=== PATIENT | male | born 1950 | race Caucasian/White ===

== ENCOUNTER 2021-01-23 10:09 | Outpatient (REF) | payer MEDICARE, SELFPAY ==
[2021-01-23 14:41] LABS: Prostate Specific Antigen < 0.05 ng/mL (<0.05-4.0)
== END 2021-01-23 10:10 | disposition home or self-care (01) ==
LOC: HO.10HDL 10:09
PROVIDERS: Absent Provider Internal Medicine; Visit Provider Urology
DX: Z12.5 Encounter for screening for malignant neoplasm of prostate (principal); C61 Malignant neoplasm of prostate
CPT/HCPCS: 36415; 84153

== ENCOUNTER → 2021-02-13 10:20 | Outpatient (BNVA) | payer MEDICARE, MEDICAID, SELFPAY | PROVIDERS: PCP Internal Medicine; Referring Provider Internal Medicine; Visit Provider Urology | DX: C61 Malignant neoplasm of prostate (principal) | CPT/HCPCS: 96402; 99212; J9217 ==

== ENCOUNTER 2021-05-17 08:16 | Outpatient (REF) | payer MEDICARE, MEDICAID, SELFPAY ==
[2021-05-17 10:23] LABS: Prostate Specific Antigen < 0.05 ng/mL (<0.05-4.0)
[2021-05-21 17:16] LABS: Testosterone, Total 3 ng/dL (250-1100)
== END 2021-05-17 08:17 | disposition home or self-care (01) ==
LOC: HO.LAB 08:16
PROVIDERS: PCP Internal Medicine; Visit Provider Urology
DX: Z12.5 Encounter for screening for malignant neoplasm of prostate (principal); N40.1 Benign prostatic hyperplasia with lower urinary tract symptoms; N13.8 Other obstructive and reflux uropathy
CPT/HCPCS: 36415; 84153; 84403

== ENCOUNTER → 2021-06-04 15:57 | Outpatient (BNVA) | payer MEDICARE, MEDICAID, SELFPAY | PROVIDERS: Visit Provider Urology | DX: C61 Malignant neoplasm of prostate (principal) | CPT/HCPCS: Q3014 ==

== ENCOUNTER 2021-08-29 10:01 | Outpatient (REF) | payer MEDICARE, MEDICAID, SELFPAY ==
[2021-08-29 11:19] LABS: PSA,Total (Free>4and<10) < 0.05 ng/mL (0.00-4.00)
== END 2021-08-29 10:02 | disposition home or self-care (01) ==
LOC: HO.LAB 10:01
PROVIDERS: PCP Internal Medicine; Visit Provider Urology
DX: Z12.5 Encounter for screening for malignant neoplasm of prostate (principal); C61 Malignant neoplasm of prostate
CPT/HCPCS: 36415; 84153

== ENCOUNTER → 2021-09-05 09:55 | Outpatient (BNVA) | payer MEDICARE, MEDICAID, SELFPAY | PROVIDERS: Visit Provider Urology | DX: R35.1 Nocturia (principal); C61 Malignant neoplasm of prostate | CPT/HCPCS: 96402; 99212; J9217 ==

== ENCOUNTER 2021-12-17 10:34 | Outpatient (REF) | payer MEDICARE, MEDICAID, SELFPAY ==
[2021-12-17 12:22] LABS: Prostate Specific Antigen < 0.05 ng/mL (<0.05-4.0)
== END 2021-12-17 10:35 | disposition home or self-care (01) ==
LOC: HO.LAB 10:34
PROVIDERS: PCP Internal Medicine; Visit Provider Urology
DX: Z12.5 Encounter for screening for malignant neoplasm of prostate (principal); N13.8 Other obstructive and reflux uropathy; N40.1 Benign prostatic hyperplasia with lower urinary tract symptoms
CPT/HCPCS: 36415; 84153

== ENCOUNTER → 2021-12-31 15:13 | Outpatient (BNVA) | payer MEDICARE, MEDICAID, SELFPAY | PROVIDERS: Visit Provider Urology | DX: Z13.89 Encounter for screening for other disorder (principal) | CPT/HCPCS: Q3014 ==

== ENCOUNTER → 2022-01-13 06:58 | Outpatient (REF) | payer MEDICARE, MEDICAID, SELFPAY ==
--- NOTE | 2022-01-13 07:00 | CA_ITS ---
Transthoracic Echocardiogram Patient (Last, First, Middle): Hong Sanders, Gender: Male Date of : 1950 Age: 71 Procedure Date: 01/13/2022 Procedure Type: Transthoracic Echocardiogram Location: OP Height: 167.64 cm Weight: 81.65 kg BSA: 1.91 m2 Heart Rate: bpm BP: 122 / 80 mmHg Wheel Polisher: VH/OT Referring MD: David Orlando MD Sandblast Carver: Leon Hodge MD Symptoms: R07.9 CHEST PAIN Study Quality: Fair ECG Rhythm: Sinus Conclusions: - 1. Normal LV systolic function with impaired relaxation filling pattern 2. Normal cardiac valvular Doppler 3. Normal RV systolic pressure 4. No pericardial effusion Findings Procedure Information Contrast agent, definity, is being given per protocol without apparent complications. Left Ventricle Normal left ventricular size, thickness, and systolic function. The visually estimated ejection fraction is between 60-65%. Spectral Doppler is indicative of an impaired relaxation filling pattern. E/E prime ratio is between 8 and 15 consistent with indeterminate filling pressures. Wall Motion Rest Echo Findings The basal inferior segment is akinetic. All other scored wall segments showed normal motion. Right Ventricle Normal right ventricular cavity size and systolic function. Atria The left atrium is normal in size. There is lipomatous hypertrophy of the interatrial septum. There is no evidence of interatrial shunt. The right atrium is normal in size. Aortic Valve The aortic valve structure and function is likely normal. There is no aortic valve stenosis. There is no aortic valve regurgitation. Mitral Valve Likely normal mitral valve structure and function. There is trace mitral valve regurgitation. There is no mitral valve stenosis. Pulmonic Valve The pulmonic valve was not well visualized. Tricuspid Valve Likely normal tricuspid valve structure and function. There is trace tricuspid valve regurgitation. The right ventricular systolic pressure is normal. The right ventricular systolic pressure is 14 mmHg. There is no evidence of pulmonary hypertension. Great Vessels All visible segments of the aorta are normal in size. The pulmonary artery was not well visualized. Venous The inferior vena cava is normal in size and collapses greater than 50% with inspiration. Pericardium/Pleural There is no evidence of pericardial effusion. Prior Study Comparison No previous study in the last 5 years for comparison Measurements 2D Linear Measurements IVSd: 1.09 0.6-0.9/0.6-1.0 cm LVIDd: 4.08 3.9-5.3/4.2-5.9 cm LVIDd Index: 2.14 2.4-3.2/2.2-3.1 cm/m2 LVIDs: 2.71 2.0-3.6 cm LVPWd: 1.09 0.7-1.1 cm Ao Root: 3.40 2.1-3.5 cm LA Diam: 3.40 2.7-3.8/3.0-4.0 cm LAIDs Index: 1.78 1.5-2.3 cm/m2 LV Mass: 184.49 67-162/88-224 g LV Mass Index: 96.59 43-95/49-115 g/m2 LVOT Diam: 2.20 3.0+(-)1.3 cm Mitral Valve MV Pk E: 0.81 MV PK A: 1.06 MV Decel Time: 191.00 E/A: 0.80 E'Lateral: 8.05 E'Medial: 4.79 E/E' Med: 16.80 E/E' Lat: 10.00 PHT: 56.00 MVA PHT: 3.93 [place]: 4.21 Aortic Valve AoV Pk Mert: 1.02 AoV Mn Mert: 0.65 AoV VTI: 0.26 AoV Pk Grad: 4.00 Aov Mn Grad: 2.00 JAGDISH Cont.VTI: 2.88 LVOT LVOT Pk Mert: 0.85 LVOT Mn Mert: 0.58 LVOT VTI: 0.20 LVOT Pk Grad: 3.00 LVOT Mn Grad: 2.00 LVOT Diam: 2.20 LVOT Area: 3.80 Diastolic Function MV Pk E: 0.81 MV Pk A: 1.06 E/A: 0.80 E'Medial: 4.79 E/E' Med: 16.80 E' Laterial: 8.05 E/E' Lat: 10.00 Tricuspid Valve TR Pk Mert: 1.66 TR Pk Grad: 11.00 RA Press: 3.00 RVSP: 14.00 Great Vessels Aorta Ao Root-2D: 3.40 2.0-3.7 cm Ao Asc: 3.40 2.1-3.4 cm Pulmonary Valve PV Pk Mert: 0.90 Peak PV Grad: 3.00 Updated in Other Vendor System with Status of Final Leon Hodge MD electronically signed on 01/13/2022 12:17:44 PM with status of Final
== END ==
LOC: HO.CARD 06:58
PROVIDERS: PCP Internal Medicine; Visit Provider Internal Medicine
DX: R07.89 Other chest pain (principal)
CPT/HCPCS: 93306; Q9957

== ENCOUNTER 2022-03-05 09:51 | Outpatient (REF) | payer MEDICARE, MEDICAID, SELFPAY ==
[2022-03-05 12:03] LABS: Prostate Specific Antigen < 0.05 ng/mL (<0.05-4.0)
[2022-03-17 02:11] LABS: Testosterone, Total 3 ng/dL (250-1100)
== END 2022-03-05 09:52 | disposition home or self-care (01) ==
LOC: HO.LAB 09:51
PROVIDERS: PCP Internal Medicine; Visit Provider Urology
DX: Z12.5 Encounter for screening for malignant neoplasm of prostate (principal); C61 Malignant neoplasm of prostate; N40.1 Benign prostatic hyperplasia with lower urinary tract symptoms; N13.8 Other obstructive and reflux uropathy
CPT/HCPCS: 36415; 84153; 84403

== ENCOUNTER → 2022-03-31 14:06 | Outpatient (BNVA) | payer MEDICARE, MEDICAID, SELFPAY | PROVIDERS: PCP Internal Medicine; Visit Provider Urology | DX: C61 Malignant neoplasm of prostate (principal) | CPT/HCPCS: 96402; 99212; J9217 ==

== ENCOUNTER 2022-06-08 10:47 | Outpatient (REF) | payer MEDICARE, MEDICAID, SELFPAY ==
--- NOTE | ~2022-06-08 | XR_ITS ---
EXAMINATION: XR KNEE, RIGHT CLINICAL INFORMATION: Pain. COMPARISON: Regressed dated 08/26/2017. TECHNIQUE: AP and lateral views of the right knee. FINDINGS: Bony mineralization is normal. There is marked asymmetric narrowing of medial joint space compartment, with peripheral osteophyte formation. There is a secondary varus configuration. The lateral and patellofemoral joint are well-maintained and show peripheral osteophyte formation. There is chondrocalcinosis. No fracture or dislocation is seen. There is a moderately large joint effusion. XR/XR knee RT 2V IMPRESSION: 1. There is tricompartment osteoarthritic change, most pronounced of the medial joint space compartment. 2. There is a mild varus configuration of the right knee. 3. There is chondrocalcinosis, which can be associated with CPPD. 4. There is a moderately large right knee joint effusion.
== END 2022-06-08 10:48 | disposition home or self-care (01) ==
LOC: HO.XRAY 10:47
PROVIDERS: PCP Internal Medicine; Visit Provider Internal Medicine
DX: M51.9 Unspecified thoracic, thoracolumbar and lumbosacral intervertebral disc disorder (principal)
CPT/HCPCS: 73560

== ENCOUNTER 2022-06-12 08:16 | Outpatient (REF) | payer MEDICARE, MEDICAID, SELFPAY ==
--- NOTE | ~2022-06-12 | MM_ITS ---
EXAMINATION: BONE DENSITOMETRY CLINICAL INDICATION: Other specified disorders of bone density and structure. COMPARISON: None (current study represents initial baseline exam). TECHNIQUE: Using a VeriShow DXA System (software version: 13.1) manufactured by [id number], dual-energy x-ray absorptiometry was performed of the lumbar spine and left hip. The images are of good technical quality. Summary results are attached. FINDINGS: AP SPINE L1-L4: BMD 1.361 g/cm2, Z-score 1.5, T-score 1.2, normal. LEFT FEMUR, NECK: BMD 0.841 g/cm2, Z-score -0.6, T-score -1.8, osteopenia. LEFT FEMUR, TOTAL: BMD 0.966 g/cm2, Z-score -0.3, T-score -0.9, normal. IDENTIFIED RISK FACTORS: Secondary osteoporosis, history of fracture (adult). HISTORY OF FRACTURE: Shoulder. MEDICATIONS: None listed. MM/XR DEXA axial skeleton IMPRESSION: 1. DIAGNOSIS: Osteopenia based on the lowest T-score value of -1.8 in the femoral neck applying World Health Organization criteria. 2. 10-YEAR FRACTURE RISK PREDICTION, FRAX: Major osteoporotic fracture (clinical spine, forearm, hip or shoulder) 6.4%. Hip fracture 1.6%. 3. Treatment Recommendations: NOF guidelines recommend consideration for treatment in postmenopausal women and men age 50 and older presenting with the following: -A hip or vertebral (clinical or morphometric) fracture. -T-score less than or equal to -2.5 at the femoral neck or spine after appropriate evaluation to exclude secondary causes. -Low bone mass at the hip or spine and a 10-year fracture probability by FRAX of greater than or equal to 3% for hip fracture or greater than or equal to 20% for major osteoporotic fracture based on the [place] adapted WHO algorithm. 4. Other Recommendations: All treatment decisions require clinical judgment and consideration of individual patient factors, including patient preferences, comorbidities, previous drug use, risk factors not captured in the FRAX model (e.g. frailty, falls, vitamin D deficiency, increased bone turnover, interval significant decline in bone density) and possible under or overestimation of fracture risk by FRAX. Additional medical evaluation for secondary cause of low bone mineral density may be appropriate. FUTURE SCAN RECOMMENDATION: People with diagnosed cases of osteoporosis or at high risk for fracture should have regular bone mineral density tests. For patients eligible for Medicare, routine testing is allowed once every 2 years. The testing frequency can be increased to one year for patients who have rapidly progressing disease, those who are receiving or discontinuing medical therapy to restore bone mass, or have additional risk factors.
== END 2022-06-12 08:17 | disposition home or self-care (01) ==
LOC: HO.MAMMO 08:16
PROVIDERS: Visit Provider Urology
DX: Z13.820 Encounter for screening for osteoporosis (principal); M85.80 Other specified disorders of bone density and structure, unspecified site; C61 Malignant neoplasm of prostate; Z87.81 Personal history of (healed) traumatic fracture
CPT/HCPCS: 77080

== ENCOUNTER 2022-07-21 07:50 | Outpatient (REF) | payer MEDICARE, MEDICAID, SELFPAY ==
[2022-07-21 09:28] LABS: Prostate Specific Antigen < 0.05 ng/mL (<0.05-4.0)
[2022-07-26 12:56] LABS: Testosterone, Total 3 ng/dL (250-1100)
== END 2022-07-21 07:51 | disposition home or self-care (01) ==
LOC: HO.LAB 07:50
PROVIDERS: PCP Internal Medicine; Visit Provider Urology
DX: C61 Malignant neoplasm of prostate (principal)
CPT/HCPCS: 36415; 84153; 84403

== ENCOUNTER → 2022-08-04 10:27 | Outpatient (BNVA) | payer MEDICARE, MEDICAID, SELFPAY | PROVIDERS: Visit Provider Urology | DX: C61 Malignant neoplasm of prostate (principal); M85.80 Other specified disorders of bone density and structure, unspecified site | CPT/HCPCS: 51798; 99212 ==

== ENCOUNTER 2022-12-09 14:09 | Outpatient (REF) | payer MEDICARE, MEDICAID, SELFPAY | END 2022-12-09 14:10 | disposition home or self-care (01) | LOC: HO.HOSX 14:09 | PROVIDERS: Visit Provider Physician Assistant | DX: Z13.89 Encounter for screening for other disorder (principal) ==

== ENCOUNTER 2023-01-19 10:09 | Outpatient (REF) | payer MEDICARE, MEDICAID, SELFPAY ==
[2023-01-19 12:14] LABS: Prostate Specific Antigen < 0.10 ng/mL (<0.05-4.0)
[2023-01-27 10:38] LABS: Testosterone, Total 16 ng/dL (250-1100)
== END 2023-01-19 10:10 | disposition home or self-care (01) ==
LOC: HO.LAB 10:09
PROVIDERS: PCP Internal Medicine; Visit Provider Urology
DX: C61 Malignant neoplasm of prostate (principal); Z12.5 Encounter for screening for malignant neoplasm of prostate
CPT/HCPCS: 36415; 84153; 84403

== ENCOUNTER → 2023-02-03 10:35 | Outpatient (BNVA) | payer MEDICARE, MEDICAID, SELFPAY | PROVIDERS: PCP Internal Medicine; Visit Provider Urology | DX: C61 Malignant neoplasm of prostate (principal); M85.80 Other specified disorders of bone density and structure, unspecified site | CPT/HCPCS: Q3014 ==

== ENCOUNTER 2023-05-19 10:46 | Outpatient (REF) | payer MEDICARE, MEDICAID, SELFPAY ==
--- NOTE | ~2023-05-19 | XR_ITS ---
EXAMINATION: XR KNEE, RIGHT CLINICAL INFORMATION: Pain. COMPARISON: Radiographs dated 06/08/2022 and 08/26/2017. TECHNIQUE: Frontal, lateral and axial views of the right knee are submitted. FINDINGS: Bony mineralization is normal. There is marked asymmetric narrowing of the medial joint space compartment, with peripheral osteophyte formation. There is a secondary varus configuration. The lateral and patellofemoral joint space compartments are well-maintained, with peripheral osteophyte formation. There is chondrocalcinosis. No fracture or dislocation is seen. A posterior loose body is noted. There is a moderately large joint effusion. There is mild prepatellar soft tissue swelling. No foreign body is seen. XR/XR knee RT 3V IMPRESSION: 1. No fracture or dislocation is seen. 2. There is tricompartment osteoarthritic change of the right knee, most pronounced in the medial joint space compartment, where it is severe. 3. There is a varus configuration. 4. A moderately large joint effusion is seen. 5. A posterior loose body is noted.
== END 2023-05-19 10:47 | disposition home or self-care (01) ==
LOC: HO.XRAY 10:46
PROVIDERS: PCP Internal Medicine; Visit Provider Internal Medicine
DX: M25.561 Pain in right knee (principal)
CPT/HCPCS: 73562

== ENCOUNTER 2023-06-30 10:12 | Outpatient (REF) | payer MEDICARE, MEDICAID, SELFPAY ==
[2023-06-30 11:45] LABS: Prostate Specific Antigen 0.15 ng/mL (<0.05-4.0)
== END 2023-06-30 10:13 | disposition home or self-care (01) ==
LOC: HO.LAB 10:12
PROVIDERS: PCP Internal Medicine; Visit Provider Urology
DX: Z12.5 Encounter for screening for malignant neoplasm of prostate (principal); C61 Malignant neoplasm of prostate
CPT/HCPCS: 36415; 84153

== ENCOUNTER 2023-07-12 14:52 | Outpatient (AMB) | payer MEDICARE, MEDICAID, SELFPAY ==
--- NOTE | 2023-07-12 12:19 | A.OFFVIS_ITS ---
Intake Intake Visit Reasons: 4M PSA(psa?) Intake Note: Patient presents today for a follow-up on PSA: Patient has not taken any Urological meds in several months. Meds- Tamsulosin & Finasteride Allergies to Antibiotic- No Known Allergies Blood Thinner- Aspirin PSA Results- 0.15 ng/mL 06/30/2023 PVR- 34 ml Real Estate Assistant Required: Yes Real Estate Assistant Language: Cameroonian Information Interpreted: non-clinical & clinical Accompanied by: Self / Same As Patient Allergies aspirin [ASPIRIN] Adverse Reaction (Mild, Verified 07/12/23 15:01) GI UPSET Medication List - Last Reconciled 07/12/23 by Selene Jones MD alcohol swabs pad topical BID blood pressure test kit-large As directed blood sugar diagnostic (7fgameTouch Ultra Test strips) As directed calcium carbonate (Calcium 500) 500 mg PO BID 90 days capsaicin 0.075% (Arthritis Pain Relief (capsaicin)) appl topical TID colchicine (gout) 0.6 mg PO BID empagliflozin (Jardiance) 10 mg PO QAM finasteride 5 mg PO DAILY 90 days gabapentin mg PO gabapentin 300 mg PO BEDTIME lancets (OneTouch Delica Plus Lancet) As directed latanoprost 0.005% 1 drp ophthalmic (eye) BEDTIME metformin 1,000 mg PO BID mirtazapine 15 mg PO BEDTIME omeprazole 20 mg PO QAM tamsulosin 0.4 mg PO BEDTIME 30 days HPI HPI Comments History of Present Illness Details Hong is a 72-year-old male who presents today to the office for a 4 month follow up on PSA. 07/12/2023? He was last seen by Dr. Lopez on 02/03/2023. Pt has a history of type II diabetes. He has a history of prostate cancer. Patient has a history of being diagnosed with prostate cancer in 2017. He was seen by Dr. Villar. Initially diagnosed treated about 2016, he was started on radiation therapy and short term hormonal therapy. Medical records indicate that there was a raise in the PSA and the Patient was again treated with hormonal radiation therapy for about 18 months in 2020.? He had a bone density scan done on 06/12/2022 which noted osteopenia. He was started on calcium 500 mg BID at that time. I reviewed the PSA results from 06/30/2023 revealed 0.15. He states that he has been out of Tamsulosin 0.4 mg and Finasteride 5 mg medications. He reports intermittent urinary urgency. Evaluation today UA: leukocytes: negative; blood: negative; bladder scan PVR: 34 mL. I will discuss consideration for Prolia, based on the results of the repeat bone density. Plan: Will repeat the bone density. Continue calcium 500 mg BID daily. Continue Finasteride 5 mg daily. Continue Tamsulosin 0.4 mg daily. Patient has been out Tamsulosin and Finasteride. Once he restarts the medications, we will discuss on follow up, if his urinary symptoms has improved or not. Tele-visit follow up in 10 weeks. [facility] Medical History BPH (benign prostatic hyperplasia) Diabetes mellitus, type II Nocturia Prostate cancer Surgical History History of tonsillectomy Family History Mother Diabetes Breast cancer Sister Uterine cancer Brother Stomach cancer Father Prostate cancer Social History Household Members: Family Housing: House Alcohol intake: former Patient Tobacco Use Status: Former Tobacco user Review of Systems Const All systems reviewed & are unremarkable except as noted in HPI and below Reports no additional complaints Eyes Reports no additional complaints ENT Reports no additional complaints Card Denies dyspnea Resp Denies cough and Denies dyspnea GI Reports no additional complaints Musc Reports no additional complaints Skin/Breast Denies rash and Denies unusual bruising Neuro Reports no additional complaints Psych Reports no additional complaints Endo Reports no additional complaints Tomas/Lymph Reports no additional complaints Aller/Immun Reports no additional complaints Physical Exam Const General: healthy appearing, no acute distress and well developed Orientation/consciousness: patient oriented x3 HEENT Head: Yes normocephalic and Yes atraumatic Eyes Conjunctivae: conjunctivae normal Neck Neck: Yes normal visual inspection Chest Chest palpation & inspection: normal inspection of the chest Resp Effort & Inspection: normal respiratory effort Cardio Rate: regular rate GI Inspection: Yes normal to inspection Palpation (GI): Soft to palpation Skin General skin exam: no rashes or lesions noted Neuro General: patient oriented x3 Psych Appearance: grossly normal Affect: normal affect Office Procedures Post Void Residual Post Residual Void Post Void Residual (PVR): 34 [id number] Void Residual by ultrasound Results AMB Urinalysis, Automated UA Leukoctes 0 Ashlie/uL Last Edit by Ginger Acosta [facility] on 07/12/23 15:16 UA Nitrite Negative Last Edit by Ginger Acosta [facility] on 07/12/23 15:16 UA Urobilinogen 0.2 mg/dL Last Edit by Ginger Acosta [facility] on 07/12/23 15:1 6 UA Protein 0 mg/dL Last Edit by Ginger Acosta [facility] on 07/12/23 15:16 UA pH 6.0 Last Edit by Ginger Acosta [facility] on 07/12/23 15:16 UA Blood 0 Isaias/uL Last Edit by Ginger Acosta [facility] on 07/12/23 15:16 UA Specific [place] 1.020 Last Edit by Ginger Acosta [facility] on 07/12/23 15: 16 UA Ketone Negative Last Edit by Ginger Acosta [facility] on 07/12/23 15:16 UA Bilirubin 0 mg/dL Last Edit by Ginger Acosta [facility] on 07/12/23 15:16 UA Glucose 1000 mg/dL Last Edit by Ginger Acosta [facility] on 07/12/23 15:16 3+ Ginger Acosta 07/12/23 15:16 Results Reviewed Results Reviewed: Laboratory Last Values Urine pH (Auto) 6.0 07/12/23 15:15 Specific [place] (Auto) 1.020 07/12/23 15:15 Urine Protein (Auto) 0 mg/dL 07/12/23 15:15 Glucose (UA)(Auto) 1000 mg/dL 07/12/23 15:15 Urine Ketones (Auto) Negative 07/12/23 15:15 Urine Blood (Auto) 0 Isaias/uL 07/12/23 15:15 Urine Nitrite (Auto) Negative 07/12/23 15:15 Urine Bilirubin (Auto) 0 mg/dL 07/12/23 15:15 Urine Urobilinogen (Auto) 0.2 mg/dL 07/12/23 15:15 Leukocyte Esterase (Auto) 0 Ashlie/uL 07/12/23 15:15 Assessment & Plan Assessment & Plan (1) Osteopenia due to cancer therapy: Code(s): M85.80 - Other specified disorders of bone density and structure, unspecified site Plan: We will repeat the bone density. Continue calcium 500 mg BID daily. Continue Finasteride 5 mg daily. Continue Tamsulosin 0.4 mg daily. Patient has been out Tamsulosin and Finasteride. Once he restarts the medications, we will discuss on follow up, if his urinary symptoms has improved or not. Tele-visit follow up in 10 weeks. (2) Urinary urgency: Code(s): R39.15 - Urgency of urination (3) Prostate cancer: Comment: [place] 8. External beam radiation. Rising PSA with intermittent hormone therapy Code(s): C61 - Malignant neoplasm of prostate Orders: Orders XR DEXA axial skeleton 07/12/23 M85.80 - Other specified disorders of bone density and structure, unspecified site AMB Urinalysis Automated 07/12/23 Z13.9 - Encounter for screening, unspecified AMB Post Void Residual by ultrasound 07/12/23 N39.8 - Other specified disorders of urinary system Medications: Refilled tamsulosin 0.4 mg PO BEDTIME 30 days 90 caps 2RF R35.1 - Nocturia finasteride 5 mg PO DAILY 90 days 90 tabs 2RF C61 - Malignant neoplasm of prostate, N13.8 - Other obstructive and reflux uropathy, N40.1 - Benign prostatic hyperplasia with lower urinary tract symptoms, R33.9 - Retention of urine, unspecified Patient Instructions: The patient had an opportunity to ask questions regarding treatment plan. All questions were answered. Imaging, Laboratory studies and physical exam results were discussed and reviewed in detail. No major barriers to understanding were identified. The patient expressed understanding and agreement with the above treatment plan.? ? ? The patient is aware they should contact our office by phone for worsening of their current condition or the appearance of new symptoms. Compliance is encouraged with any medications and followup testing that is ordered.? ? ? It is a privilege to be allowed the opportunity to participate in the urologic care of your patient. If you have any questions or concerns regarding treatment for the above conditions please do not hesitate to contact me. The office telephone contact is [phone].? ? ? This note is constructed in part using voice recognition software. While every effort has been made to ensure accuracy vocational training instructor errors may have been included.? ? ? Yours sincerely,? ? ? Selene Jones MD? Coding Level of Care Code Est Pt Level 4 (38219) Diagnoses Osteopenia due to cancer therapy M85.80 Urinary urgency R39.15 Prostate cancer C61 CPT Codes Post Residual Void - PVR CPT Code: 22445-Womh Void Residual by ultrasound ([id number])
== END 2023-07-12 15:32 | disposition home or self-care (01) ==
PROVIDERS: Visit Provider Urology
DX: M85.80 Other specified disorders of bone density and structure, unspecified site (principal); R39.15 Urgency of urination; C61 Malignant neoplasm of prostate
CPT/HCPCS: 99214

== ENCOUNTER → 2023-07-12 14:52 | Outpatient (BNVA) | payer MEDICARE, MEDICAID, SELFPAY | PROVIDERS: Visit Provider Urology | DX: R39.15 Urgency of urination (principal); N40.0 Benign prostatic hyperplasia without lower urinary tract symptoms; R35.1 Nocturia; C61 Malignant neoplasm of prostate; M85.80 Other specified disorders of bone density and structure, unspecified site; E11.9 Type 2 diabetes mellitus without complications; Z92.3 Personal history of irradiation | CPT/HCPCS: 51798; 99212 ==

== ENCOUNTER 2023-08-13 09:07 | Outpatient (REF) | payer MEDICARE, MEDICAID, SELFPAY ==
[2023-08-13 15:04] LABS: MANUAL DIFF FLAG NO
[2023-08-13 15:08] LABS: Basophils Percent Auto 0.7 % (0-2); Eosinophils Absolute Auto 0.1 X10*3/uL (0.0-0.4); Eosinophils Percent Auto 2.1 % (0-4); Hematocrit 44.1 % (42.0-52.0); Hemoglobin 14.8 g/dl (14.0-18.0); Imm Gran Abs Auto 0.02 X10*3/uL (0.00-0.03); Imm Gran Pct Auto 0.5 % (0.0-0.4); Lymphocytes Percent Auto 23.6 % (20-40); Mean Corpuscular HGB Conc 33.6 g/dl (31.0-36.0); Mean Corpuscular Hemoglobin 30.1 pg (27.0-33.0); Mean Corpuscular Volume 89.6 fL (80.0-98.0); Mean Platelet Volume 9.8 fL (9.4-12.4); Monocytes Absolute Auto 0.5 X10*3/uL (0.1-1.2); Monocytes Percent Auto 10.3 % (2-11); Neutrophils Absolute Auto 2.7 x10*3/uL (2.0-8.3); Neutrophils Percent Auto 62.8 % (45-73); Platelet Count 216 X10*3/uL (160-400); Red Blood Count 4.92 X10*6/uL (4.60-5.80); Red Cell Distribution Width 13.7 % (11.0-16.0); White Blood Count 4.4 X10*3/uL (4.8-10.8)
[2023-08-13 16:07] LABS: Alanine Aminotransferase 19 U/L (0-40); Albumin Level 4.1 g/dL (3.5-5.0); Alkaline Phosphatase 95 U/L (39-117); Anion Gap 11 (12-20); Aspartate Amino Transferase 15 U/L (5-37); Bilirubin Total 0.5 mg/dL (0.0-1.0); Blood Urea Nitrogen 13 mg/dL (9-16); Calcium 9.3 mg/dL (8.4-10.2); Carbon Dioxide 28 mmol/L (22-29); Chloride 107 mmol/L (96-108); Cholesterol 319 mg/dL (<200); Estimated Glomerular Filt Rate > 60; Glucose Fasting 98 mg/dL (60-99); HDL Cholesterol 81 mg/dL (>40); LDL Cholesterol Calculated 216 mg/dL (<100); Potassium 4.1 mmol/L (3.3-5.1); Sodium 142 mmol/L (135-145); TSH reflex Free T4 17.79 uIU/mL (0.32-4.0); Total Protein 7.2 g/dL (6.5-8.0); Triglycerides 113 mg/dL (<150)
[2023-08-13 17:01] LABS: Free T4 (Free Thyroxine) 0.73 ng/dL (0.71-1.85)
== END 2023-08-13 09:08 | disposition home or self-care (01) ==
LOC: HO.CHCLDS 09:07
PROVIDERS: Visit Provider Internal Medicine
DX: E11.9 Type 2 diabetes mellitus without complications (principal)
CPT/HCPCS: 36415; 80053; 80061; 84439; 84443; 85025

== ENCOUNTER 2024-08-30 09:41 | Outpatient (REF) | payer MEDICARE, MEDICAID, SELFPAY ==
[2024-08-30 14:44] LABS: MANUAL DIFF FLAG NO
[2024-08-30 14:49] LABS: Basophils Percent Auto 0.5 % (0-2); Eosinophils Absolute Auto 0.1 X10*3/uL (0.0-0.4); Eosinophils Percent Auto 2.8 % (0-4); Hematocrit 44.4 % (42.0-52.0); Hemoglobin 14.6 g/dl (14.0-18.0); Imm Gran Abs Auto 0.01 X10*3/uL (0.00-0.03); Imm Gran Pct Auto 0.3 % (0.0-0.4); Lymphocytes Percent Auto 24.1 % (20-40); Mean Corpuscular HGB Conc 32.9 g/dl (31.0-36.0); Mean Corpuscular Hemoglobin 29.7 pg (27.0-33.0); Mean Corpuscular Volume 90.2 fL (80.0-98.0); Monocytes Absolute Auto 0.4 X10*3/uL (0.1-1.2); Monocytes Percent Auto 11.1 % (2-11); Neutrophils Absolute Auto 2.4 x10*3/uL (2.0-8.3); Neutrophils Percent Auto 61.2 % (45-73); Platelet Count 173 X10*3/uL (160-400); Red Blood Count 4.92 X10*6/uL (4.60-5.80); Red Cell Distribution Width 13.9 % (11.0-16.0)
[2024-08-30 15:20] LABS: Alanine Aminotransferase 17 U/L (0-40); Alkaline Phosphatase 110 U/L (39-117); Anion Gap 12 (12-20); Aspartate Amino Transferase 15 U/L (5-37); Bilirubin Total 0.6 mg/dL (0.0-1.0); Blood Urea Nitrogen 11 mg/dL (9-16); Carbon Dioxide 24 mmol/L (22-29); Chloride 110 mmol/L (96-108); Cholesterol 162 mg/dL (<200); Estimated Glomerular Filt Rate > 60; Glucose Random 107 mg/dL (60-115); HDL Cholesterol 73 mg/dL (>40); LDL Cholesterol Calculated 72 mg/dL (<100); Potassium 4.2 mmol/L (3.3-5.1); Sodium 142 mmol/L (135-145); Total Protein 7.1 g/dL (6.5-8.0); Triglycerides 87 mg/dL (<150)
[2024-08-30 15:27] LABS: TSH reflex Free T4 12.75 uIU/mL (0.32-4.0)
[2024-08-30 16:36] LABS: Free T4 (Free Thyroxine) 0.69 ng/dL (0.71-1.85)
[2024-08-31 08:42] LABS: ~HepC Num1 1.04 S/CO (0.00-0.79); ~Hepatitis C Antibody Reactive (Nonreactive)
[2024-09-02 15:10] LABS: HCV Log PCR <1.18 NOT DETECTED Log IU/mL (NOT DETECTED); HepC Viral Load <15 NOT DETECTED IU/mL (NOT DETECTED)
== END 2024-08-30 09:42 | disposition home or self-care (01) ==
LOC: HO.CHCLDS 09:41
PROVIDERS: Visit Provider Internal Medicine
DX: E11.9 Type 2 diabetes mellitus without complications (principal); I10 Essential (primary) hypertension
CPT/HCPCS: 36415; 80053; 80061; 84439; 84443; 85025; 86803; 87522

== ENCOUNTER 2025-01-10 10:05 | Outpatient (REF) | payer MEDICARE, SELFPAY ==
[2025-01-11 14:49] LABS: Creatinine Urine 116.37 mg/dL
[2025-01-11 14:57] LABS: TSH reflex Free T4 8.23 uIU/mL (0.32-4.0)
== END 2025-01-10 10:06 | disposition home or self-care (01) ==
LOC: HO.CHCLDS 10:05
PROVIDERS: Visit Provider Internal Medicine
DX: R79.89 Other specified abnormal findings of blood chemistry (principal); E11.9 Type 2 diabetes mellitus without complications; E66.811 Obesity, class 1; E66.09 Other obesity due to excess calories; Z68.30 Body mass index [BMI] 30.0-30.9, adult
CPT/HCPCS: 36415; 82043; 82570; 84439; 84443

== ENCOUNTER 2025-04-04 11:10 | Emergency (ER) | payer MEDICARE, SELFPAY ==
--- NOTE | ~2025-04-04 | CT_ITS ---
EXAMINATION: CT HEAD WITHOUT IV CONTRAST HISTORY: fall 2 mos ago, headache, dizziness. TECHNIQUE: Unenhanced helical CT of the head was performed per standard departmental protocol. Coronal and sagittal reformats of the head were also evaluated. One or more of the following techniques was used for dose reduction: Automated exposure control, adjustment of the mA and/or kV according to patient size, use of iterative reconstruction technique. DLP: 710 mGy-cm COMPARISON: There are no prior studies for comparison. FINDINGS: BRAIN: There is diffuse prominence of the ventricular system and cortical sulci, consistent with atrophy. Periventricular and subcortical white matter hypodensities are noted which are nonspecific, but often seen in the setting of small vessel ischemic disease. There is no mass effect or midline shift. No intra- or extra-axial fluid collections are identified. SINUSES: The visualized paranasal sinuses are clear. The mastoid air cells and middle ear cavities are well pneumatized. ORBITS: The visualized orbits are unremarkable. BONES/SOFT TISSUES: The extracranial soft tissues are unremarkable. The calvarium is intact. No suspicious lytic or sclerotic lesions. CT/CT head/brain wo IV con IMPRESSION: No evidence of intracranial hemorrhage. Electronically signed by: Brendon Skinner MD 04/04/2025 02:25 PM EDT
[2025-04-04 11:49] VITALS: BP 116/64; PULSE 97; RESP 18; TEMP 36.6; O2SAT 97; BMI 25.1
--- NOTE | 2025-04-04 11:49 | ED_ITS ---
HPI - Headache General Chief Complaint: General Medical Stated Complaint: headache Time Seen by Provider: 04/04/25 13:29 Source: patient, family (Spouse and son) and renal social worker Mode of arrival: ambulatory Limitations: no limitations History of Present Illness ED Provider: DR. Crowley HPI Narrative: 74-year-old male came in for evaluation of headache and dizziness for about a month on and off. Patient sustained a mechanical fall 2 months ago causing hitting the left side of his head and closed head injury, then patient's symptoms started as an intermittent symptoms a month ago, patient describing dizziness as room spinning triggered by changing position especially from supine to standing. Each episode lasts for about 2-3 minute then resolve on its own. No Speech issue, no weakness, no numbness. Related Data Home Medications ?Medication ?Instructions ?Recorded ?Confirmed alcohol swabs pad topical BID 02/13/21 07/12/23 blood pressure test kit-large #1 ea 02/13/21 07/12/23 gabapentin 100 mg capsule mg PO 02/13/21 07/12/23 latanoprost 0.005 % eye drops 1 drp ophthalmic (eye) BEDTIME 02/13/21 07/12/23 metformin 1,000 mg tablet 1,000 mg PO BID 02/13/21 07/12/23 mirtazapine 15 mg tablet 15 mg PO BEDTIME 02/13/21 07/12/23 omeprazole 20 mg capsule,delayed 20 mg PO QAM 02/13/21 07/12/23 release gabapentin 300 mg capsule 300 mg PO BEDTIME 12/31/21 07/12/23 blood sugar diagnostic (IntivixTouch #10 ea 08/04/22 07/12/23 Ultra Test strips) capsaicin 0.075 % topical cream appl topical TID 08/04/22 07/12/23 (Arthritis Pain Relief (capsaicin)) colchicine 0.6 mg tablet 0.6 mg PO BID 08/04/22 07/12/23 lancets 30 gauge (OneTouch Ankita #100 ea 08/04/22 07/12/23 Plus Lancet) empagliflozin 10 mg tablet 10 mg PO QAM 02/03/23 07/12/23 (Jardiance) Previous Rx's ?Medication ?Instructions ?Recorded calcium carbonate (Calcium 500) 500 mg PO BID Prostate cancer 90 03/16/23 days #180 tabs finasteride 5 mg tablet 5 mg PO DAILY #90 tabs 01/11/24 tamsulosin 0.4 mg capsule 0.4 mg PO BEDTIME #90 caps 01/11/24 meclizine 25 mg tablet 25 mg PO TID PRN dizziness #20 tabs 04/04/25 Allergies Allergy/AdvReac Type Severity Reaction Status Date / Time aspirin [ASPIRIN] AdvReac Mild GI UPSET Verified 04/04/25 11:55 Review of Systems 2 Review of Systems: All other systems are reviewed and are negative Constitutional: Reports as per HPI and Reports no additional constitutional complaints Eyes: Reports as per HPI and Reports no additional eye complaints Reports system reviewed and no additional complaints, except as documented Cardiovascular: Reports as per HPI and Reports no additional cardiovascular complaints Respiratory: Reports as per HPI and Reports no additional respiratory complaints Gastrointestinal: Reports as per HPI and Reports no additional gastrointestinal complaints Genitourinary: Reports no additional female genitourinary complaints Musculoskeletal: Reports no additional musculoskeletal complaints Skin/Breast: Reports system reviewed and no additional complaints, except as docu Psychiatric: Reports no additional psychiatric complaints Endocrine: Reports no additional endocrine complaints Hematologic/Lymphatic: Reports no additional hematologic/lymphatic complaints Allergic/Immunologic: Reports no additional allergic/immunologic complaints Reports system reviewed and no additional complaints, except as documented and Reports Abnormal speech present [facility] Past Medical History Medical History Nocturia BPH (benign prostatic hyperplasia) Diabetes mellitus, type II Prostate cancer Surgical History History of tonsillectomy Family History Family History Mother Diabetes Breast cancer Sister Uterine cancer Brother Stomach cancer Father Prostate cancer Social History Social History Household Members: Family Housing: House Alcohol intake: former Patient Tobacco Use Status: Former Tobacco user Advance Directives: No Advance Directives Information Provided: Yes Physical Exam 2 Vital Signs: Vital Signs: Last Vital Signs Temp 98 F 04/04/25 16:54 Pulse 84 04/04/25 16:54 Resp 16 04/04/25 16:54 BP 118/70 04/04/25 16:54 Pulse Ox 98 04/04/25 16:54 O2 Del Method Room Air 04/04/25 16:54 BMI result Body Mass Index 25.1 Vital signs have been reviewed and appear to be correct. Blood pressure elevated. Heart rate normal. Respiratory rate normal. Temperature normal. Oxygen saturation normal. Appearance: Alert. Oriented X3. No acute distress. Head: Normal external exam. Normocephalic. Atraumatic. No Wesley signs noted. No raccoon eyes noted Eyes: PERRLA. EOMI. Conjunctiva and sclera normal. Eyelids normal. ENT: TM's Normal. Pharynx normal. Uvula midline. Moist mucous membranes. No trismus noted. No drooling noted. No muffled voice noted. Neck: Normal inspection. Neck supple. FROM. No adenopathy. Thyroid Normal. No meningeal signs. No neck mass noted. CVS: Normal heart rate and rhythm. Heart sound normal. No murmurs noted. Pulses normal throughout. Respiratory: No respiratory distress. Painless inspiration. Breath sounds normal. No wheezes/rales/rhonchi noted. Chest nontender. No accessory muscle usage noted or decreased air movement noted. Abdomen: Soft and nontender. Bowel sounds normal in all 4 quadrants. No distention noted. No organomegaly noted. No visible injury noted. Back: No CVA tenderness. Full range of motion noted. Skin: Skin warm and dry. Normal skin color. Normal skin turgor. No rashes/lesions/lacerations noted. Extremities: No lower extremity edema. Extremities exhibit normal range of motion. Extremities nontender. Neuro: Mental status: Normal attention, orientation, memory, and affect. Cranial nerves: Pupils are equal, round and reactive to light, EOMI, visual barrera are fall, face is symmetric, facial sensations are normal. Motor examination normal muscle tone, strength to 4 extremities. DTR are +2, planter's are flexor. Sensory exam; normal coordination, no ataxia, gait stable. Cerebellar exam: Osyquj-vp-[id number] and dcrh-dx-uxru is normal. Extrapyramidal system: No tremors, no rigidity with normal facial expressions. Pronator drift not present NIH Stroke Scale Time: 13:42 Level of Consciousness: Alert Level of Consciousness Questions: Answers both questions correctly Level of Consciousness Commands: Performs both tasks correctly Best Gaze: Normal Visual: No visual loss Facial Palsy: Normal Motor Arm (Right): No drift Motor Arm (Left): No drift Motor Leg (Right): No drift Motor Leg (Left): No drift Limb Ataxia: Absent Sensory: Normal Best Language: No aphasia Dysarthia: Normal Extinction and Inattention: No abnormality Score: 0 Course Course Course Narrative: This is a Rapid Medical Exam performed in triage by Slime Peck PA-C. Full HPI, ROS and PE to be performed by primary ED provider. 74 yo male with PMHx of osteoporosis, s/p prostate cancer, presenting to the ED c/o headache and dizziness. He states he fell about 2 months ago with headstrike, denies LOC or use of thinners. He reports headache and dizziness for 1 month. He states dizziness feels like the room is spinning and lasts for 2-3 minutes at a time. Denies visual changes, nausea, vomiting, cough, fever, SOB, chest pain, diarrhea. PE: No focal neuro deficits, no appreciable head trauma Plan: Head CT, labs, EKG, orthostatics Reevaluation(s) Reevaluation #1: 74-year-old male came in with 1 month on and off of vertigo after he sustained a mechanical fall with head injury a month before, neuro exam is unremarkable, head CT is unremarkable, GCS of 15, patient reported improvement with meclizine. Time: 15:00 Medical Decision Making Differential Diagnosis Differential Diagnoses: The differential diagnosis associated with the presentation includes (Peripheral vertigo, central vertigo, neurological deficit, hemorrhagic stroke, ischemic stroke, electrolyte derangement, severe anemia, orthostatic hypotension.) Admission/Observation Consideration of admission/observation: Escalation of care including admission/observation considered Lab Data MDM Lab Attestation statement: I reviewed the patient's lab results. 04/04/25 12:08 04/04/25 12:08 Labs: Lab Results 04/04/25 Range/Units 12:08 WBC 5.5 (4.8-10.8) X10*3/uL RBC 4.46 L (4.60-5.80) X10*6/uL Hgb 13.6 L (14.0-18.0) g/dl Hct 38.7 L (42.0-52.0) % MCV 86.8 (80.0-98.0) fL MCH 30.5 (27.0-33.0) pg MCHC 35.1 (31.0-36.0) g/dl RDW 13.1 (11.0-16.0) % Plt Count 182 (160-400) X10*3/uL MPV 9.4 (9.4-12.4) fL Immature Gran % (Auto) 0.4 (0.0-0.4) % Neut % (Auto) 70.1 (45-73) % Lymph % (Auto) 17.4 L (20-40) % [place] % (Auto) 8.7 (2-11) % Eos % (Auto) 2.5 (0-4) % Baso % (Auto) 0.9 (0-2) % Lymph # (Auto) 1.0 L (1.2-4.9) X10*3/uL [place] # (Auto) 0.5 (0.1-1.2) X10*3/uL Eos # (Auto) 0.1 (0.0-0.4) X10*3/uL Baso # (Auto) 0.1 (0.0-0.2) X10*3/uL Abs Immat Gran (auto) 0.02 (0.00-0.03) X10*3/uL Absolute Neuts (auto) 3.9 (2.0-8.3) x10*3/uL Absolute Nucleated RBC 0.000 (0.0-0.012) X10*3/uL Nucleated RBC % (auto) 0.0 (0.0-0.2) /100WBC Sodium 140 (135-145) mmol/L Potassium 4.3 (3.3-5.1) mmol/L Chloride 107 (96-108) mmol/L Carbon Dioxide 25 (22-29) mmol/L Anion Gap 12 (12-20) BUN 11 (9-16) mg/dL Creatinine 0.89 (0.5-1.4) mg/dL Estim Creat Clear Calc 64.7 Estimated GFR > 60 Random Glucose 252 H (60-115) mg/dL Calcium 9.2 (8.4-10.2) mg/dL Magnesium 1.9 (1.6-2.6) mg/dL Total Bilirubin 0.5 (0.0-1.0) mg/dL Direct Bilirubin 0.2 (0.0-0.5) mg/dL AST 44 H (5-37) U/L ALT 24 (0-40) U/L Alkaline Phosphatase 109 (39-117) U/L Troponin I High Sens < 2.7 (<3.5-35.0) ng/L Total Protein 6.8 (6.5-8.0) g/dL Albumin 4.0 (3.5-5.0) g/dL Influenza Type A (PCR) NEGATIVE (Negative) Influenza Type B (PCR) NEGATIVE (Negative) RSV RNA Qual (PCR) NEGATIVE (Negative) SARS-CoV-2 RNA (RT-PCR) NEGATIVE (Negative) Independent Interpretation I performed an independent interpretation of an: CT Scan (Head: No acute intracranial pathology.) Radiology Impression Discussion of test interpretation with radiology: I have reviewed the radiologist's reading. Discharge Plan Discharge Clinical Impression: Vertigo due to brain injury Patient Disposition: Home, Self-Care Instructions: Vertigo (ED) Prescriptions: New meclizine 25 mg tablet 25 mg PO TID PRN (Reason: dizziness) Qty: 20 0RF No Action calcium carbonate [Calcium 500] 500 mg calcium (1,250 mg) tablet,chewable 500 mg PO BID 90 Days Qty: 180 2RF tamsulosin 0.4 mg capsule 0.4 mg PO BEDTIME Qty: 90 2RF finasteride 5 mg tablet 5 mg PO DAILY Qty: 90 2RF (DME) blood pressure test kit-large Kit See Rx Instructions .ROUTE DIRECTED Qty: 1 Rx Instructions: As directed mirtazapine 15 mg tablet 15 mg PO BEDTIME metformin 1,000 mg tablet 1,000 mg PO BID omeprazole 20 mg capsule,delayed release(DR/EC) 20 mg PO QAM latanoprost 0.005 % drops 1 drp ophthalmic (eye) BEDTIME gabapentin 100 mg capsule PO alcohol swabs Pads, Medicated topical BID Jardiance 10 mg tablet 10 mg PO QAM gabapentin 300 mg capsule 300 mg PO BEDTIME colchicine 0.6 mg tablet 0.6 mg PO BID (DME) lancets [OneTouch Delica Plus Lancet] 30 gauge misc See Rx Instructions .ROUTE .MEDSUPPLY Qty: 100 Rx Instructions: As directed (DME) OneTouch Ultra Test Strip See Rx Instructions .ROUTE BID Qty: 10 Rx Instructions: As directed capsaicin [Arthritis Pain Relief(capsaic)] 0.075 % cream topical TID Referrals: David Orlando MD [Primary Care Provider] - Print Language: Indonesian
--- NOTE | 2025-04-04 11:55 | ECG_ITS ---
Test Reason : dizziness Blood Pressure : */* mmHG Vent. Rate : 89 BPM Atrial Rate : 89 BPM P-R Int : 214 ms QRS Dur : 84 ms QT Int : 370 ms P-R-T Axes : 53 -8 42 degrees QTcB Int : 450 ms Sinus rhythm with 1st degree A-V block Otherwise normal ECG No previous ECGs available Referred By: Slime Peck Electronically Signed By: DENISE TORRES
[2025-04-04 12:13] LABS: MANUAL DIFF FLAG NO
[2025-04-04 12:15] LABS: Basophils Absolute Auto 0.1 X10*3/uL (0.0-0.2); Basophils Percent Auto 0.9 % (0-2); Eosinophils Absolute Auto 0.1 X10*3/uL (0.0-0.4); Eosinophils Percent Auto 2.5 % (0-4); Hematocrit 38.7 % (42.0-52.0); Hemoglobin 13.6 g/dl (14.0-18.0); Imm Gran Abs Auto 0.02 X10*3/uL (0.00-0.03); Imm Gran Pct Auto 0.4 % (0.0-0.4); Lymphocytes Percent Auto 17.4 % (20-40); Mean Corpuscular HGB Conc 35.1 g/dl (31.0-36.0); Mean Corpuscular Hemoglobin 30.5 pg (27.0-33.0); Mean Corpuscular Volume 86.8 fL (80.0-98.0); Mean Platelet Volume 9.4 fL (9.4-12.4); Monocytes Absolute Auto 0.5 X10*3/uL (0.1-1.2); Monocytes Percent Auto 8.7 % (2-11); Neutrophils Absolute Auto 3.9 x10*3/uL (2.0-8.3); Neutrophils Percent Auto 70.1 % (45-73); Platelet Count 182 X10*3/uL (160-400); Red Blood Count 4.46 X10*6/uL (4.60-5.80); Red Cell Distribution Width 13.1 % (11.0-16.0); White Blood Count 5.5 X10*3/uL (4.8-10.8)
[2025-04-04 12:37] LABS: Alanine Aminotransferase 24 U/L (0-40); Alkaline Phosphatase 109 U/L (39-117); Anion Gap 12 (12-20); Aspartate Amino Transferase 44 U/L (5-37); Bilirubin Direct 0.2 mg/dL (0.0-0.5); Bilirubin Total 0.5 mg/dL (0.0-1.0); Blood Urea Nitrogen 11 mg/dL (9-16); Calcium 9.2 mg/dL (8.4-10.2); Carbon Dioxide 25 mmol/L (22-29); Chloride 107 mmol/L (96-108); Creatinine Clr Calc Pharmacy 64.7; Estimated Glomerular Filt Rate > 60; Glucose Random 252 mg/dL (60-115); Magnesium 1.9 mg/dL (1.6-2.6); Potassium 4.3 mmol/L (3.3-5.1); Sodium 140 mmol/L (135-145); Total Protein 6.8 g/dL (6.5-8.0)
[2025-04-04 12:46] LABS: Troponin-I High Sensitivity < 2.7 ng/L (<3.5-35.0)
[2025-04-04 12:52] LABS: Influenza A PCR NEGATIVE (Negative); Influenza B PCR NEGATIVE (Negative); Resp Syncy Virus RNA Qual PCR NEGATIVE (Negative); SARS COV2 PCR INHOUSE NEGATIVE (Negative)
[2025-04-04 13:19] VITALS: BP 107/67; PULSE 80; PULSE 81; RESP 20; TEMP 36.5; O2SAT 97
[2025-04-04 13:22] VITALS: BP 109/68; PULSE 86
[2025-04-04 13:23] VITALS: BP 113/69; PULSE 85
--- OUTSIDE RECORDS SUMMARY | 2025-04-04 15:39 | XMS_ITS | Encounter Summary ---
Author Organization [employer] [facility] Address [address] [place] [address] Care Team Providers Care Metallurgical Laboratory Assistant Name Role Phone David Orlando MD Primary Care Provider [phone] Encounter Details Date Type Department Care Team (Latest Contact Info) Description 10/05/2019 Abstract [facility] CONVERSIONS Dental, Provider, DDS Social History Tobacco Use Types Packs/Day Years Used Date Smoking Tobacco: Never Assessed Sex and Gender Information Value Date Recorded Sex Assigned at Male 09/28/2022 10:22 AM EDT Legal Sex Male 10:22 AM EDT Gender Identity Male 09/28/2022 10:22 AM EDT Sexual Orientation Straight 09/28/2022 10 :22 AM EDT documented as of this encounter Plan of Treatment Upcoming Encounters Date Type Department Care Team (Late st Contact Info) Description 04/09/2025 1:45 PM EDT Office Visit [facility] [address] [place] [address] David Orlando MD [address] [place] [address] documented as of this encounter Visit Diagnoses Not on filedocumented in this encounter Care Teams Metallurgical Laboratory Assistant Relationship Specialty Start Date End Date David Orlando MD [address] [place] [address] PCP - General Internal Medicine 04/05/12 documented as of this encounter
--- OUTSIDE RECORDS SUMMARY | 2025-04-04 15:39 | XMS_ITS | Clinical Summary ---
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 Active capsicum (Zostrix) 0.075 % topical cream Apply topically every 8 (eight) hours. 06/04/20 22 Active colchicine 0.6 MG tablet take 1 tablet by oral route 2 times a day 06/10/20 22 Active docusate sodium (Colace) 100 MG capsule Take 1 capsule by mouth at bed time. 11/19/20 20 Active fluticasone (Flonase) 50 MCG/ACT nasal spray Administer 1-2 sprays into affected nostril(s) at bed time. 11/23/20 18 Active gabapentin (Neurontin) 300 MG capsule take 1 capsule by oral route every day at bedtime 11/13/20 21 Active lisinopril 5 MG tablet take 1 Tablet by Oral route once a day 12/26/19 21 Active clindamycin (Cleocin) 150 MG capsule Take one tablet (150 mg) 4 times per day for 7 days 28 capsule 02/27/20 23 Active mupirocin (Bactroban) 2 % ointment Apply topically every 8 (eight) hours. 07/08/20 18 Active nystatin (Mycostatin) cream Apply topically every 12 (twelve) hours. 04/01/20 21 Active omeprazole (PriLOSEC) [address] capsule Take 1 capsule by mouth at bed time. 02/04/20 21 Active Sodium Fluoride (PreviDent) 1.1 % gel brush at bed time for 2 minutes, expectorate, do not rinse 03/27/20 16 Active triamcinolone (Kenalog) 0.1 % cream Apply topically at bed time. 04/08/20 21 Active Lancets (OneTouch Delica Plus [id number]) misc 05/14/20 23 Active fluticasone (Flonase) 50 MCG/ACT nasal spray Administer 1-2 sprays into each nostril in the morning. Shake gently. Before first use, prime pump. After use, clean tip and replace cap. 16 g 3 05/19/20 23 Active calcium carbonate (Os-Abilio) 1250 (500 Ca) MG chewable tablet CHEW AND SWALLOW ONE TABLET BY MOUTH two (2) times a day 03/25/20 23 Active ketoconazole (NIZOral) 2 % cream APPLY TO ANGLE OF LIPS two (2) times a day NEEDED 12/15/19 23 Active Lancets (OneTouch Delica Plus [id number]) [facility] USE TO TEST FINGER STICK BLOOD SUGAR two (2) times a day 100 each 5 06/22/20 24 Active OneTouch Ultra Test test strip USE TO TEST FINGER STICK BLOOD SUGAR two (2) times a day 100 strip 06/22/20 24 Active atorvastatin (Lipitor) 40 MG tabletIndications :Hypercholesterol emia TAKE 1 TABLET BY MOUTH EVERY MORNING 30 tablet 08/16/20 24 Active Continuous Glucose Director Of Instruction (FreeStyle Silvino 2 [place]) deviceIndications :Type 2 diabetes mellitus without complication, without long-term current use of insulin ([facility]) Scan sensor every 8 hours 1 each 08/28/20 24 Active Continuous Glucose Sensor (FreeStyle Silvino 2 Sensor) miscIndications:T ype 2 diabetes mellitus without complication, without long-term current use of insulin (CMS/HCC) Apply 1 sensor every 14 days 2 each 08/28/20 24 Active gabapentin (Neurontin) 100 MG capsuleIndication s:Other diabetic neurological complication associated with type 2 diabetes mellitus (CMS/HCC) Take 2 capsules (200 mg) by mouth 2 times daily. 120 capsule 08/28/20 24 2024 Active latanoprost (Xalatan) 0.005 % ophthalmic solutionIndicatio ns:Other specified glaucoma, unspecified laterality INSTILL 1 DROP IN EACH EYE ONCE DAILY AT BEDTIME 2.5 mL 12/29/19 25 Active metFORMIN (Glucophage) 850 MG tabletIndications :Type 2 diabetes mellitus without complication, without long-term current use of insulin ([facility]) Take 1 tablet (850 mg) by mouth with breakfast and with evening meal. 60 tablet 01/10/20 25 2025 Active Diclofenac Sodium 1 % gelIndications:Ch ronic pain of right knee To use 4 times a day to the affected area 100 g 01/10/20 25 Active acetaminophen (Tylenol 8 Hour) 650 MG ER tabletIndications :Chronic pain of right knee Take 1 tablet (650 mg) by mouth every 8 (eight) hours if needed for mild pain. 90 tablet 01/10/20 25 Active levothyroxine (Synthroid) 50 MCG tabletIndications :Other specified hypothyroidism Take 1 tablet (50 mcg) by mouth before breakfast. 30 tablet 01/11/20 25 2025 Active Jardiance 10 MGIndications:Typ e 2 diabetes mellitus without complication, without long-term current use of insulin ([facility]) TAKE 1 TABLET BY MOUTH ONCE DAILY IN THE MORNING 30 tablet 01/22/20 25 Active metFORMIN (Glucophage) 1000 MG tabletIndications :Type 2 diabetes mellitus without complication, without long-term current use of insulin ([facility]) TAKE 1 TABLET BY MOUTH two (2) times a day WITH BREAKFAST AND DINNER 60 tablet 01/22/20 25 Active mirtazapine (Remeron) 15 MG tablet TAKE 1 TABLET BY MOUTH EVERY NIGHT AT BEDTIME 30 tablet 03/30/20 25 Active mirtazapine (Remeron) 15 MG tablet Take 1 tablet by mouth at bed time. 07/02/20 22 2024 Discontinued mirtazapine (Remeron) 15 MG tablet TAKE 1 TABLET BY MOUTH EVERY NIGHT AT BEDTIME 30 tablet 08/18/20 24 2024 Discontinued Active Problems Problem Noted Date Diagnosed Date Type 2 diabetes mellitus wit hout complication, without long-term current use of insulin 11/09/2022 Assessment & Plan (11/09/2022 11:50 AM EST): He is on metformin 1000mg BID, a1c today is 7.6%, will start on empagliflozin 10mg, follow up with pcp Chronic pain of right knee 11/09/2022 Assessment & Plan (11/09/2022 11:46 AM EST): Chronic, denied recent trauma, he refers completed PT without improvement in symptoms, told to raise extremity, apply ice, take tylenol/NSAID, will refer to ortho, he had xray done in 05/2022 Skin lesion 11/09/2022 Assessment & Plan (11/09/2022 11:51 AM EST): Patient with right ear lesion AK vs SCC, will refer to dermatology for evaluation Hypercholesterolemia 11/09/2022 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 Hypertension 01/05/2017 Paresthesia 01/05/2017 Diabetes mellitus type 2, uncomplicated 06/10/20 12 Generalized osteoarthritis 06/10/2010 Herniation of intervertebral disc 06/10/1998 Encounters Date Type Department Care Team Description 04/04/2025 Orders Only GENERIC EXTERNAL DATA DEPARTMENT Provider, Generic External Data 04/02/2025 Patient Outreach [facility] [address] [place] [address] David Orlando MD Pre-visit Planning (Pre visit planning LVM ) 03/30/2025 Refill [facility] [address] [place] [address] David Orlando MD 03/09/2025 10:00 AM EDT Office Visit [facility] [address] [place] [address] Rolan, Fozia, OD Diabetes type 2, no ocular involvement (CMS/HCC) (Primary Dx); Glaucoma of both eyes, unspecified glaucoma type; Nuclear sclerotic cataract of both eyes; H/O laser iridotomy; Asteroid hyalosis of left eye; Reduced vision; Presbyopia 03/09/2025 Travel 02/28/2025 10:00 AM EDT Office Visit [facility] [address] [place] [address] Bartolo Jones 02/02/2025 10:00 AM EST Office Visit [facility] [address] [place] [address] Brianne Willson 01/22/2025 Refill [facility] [address], [place] [phone] Lesia Carias MD Type 2 diabetes mellitus without complication, without long-term current use of insulin (CMS/HCC) 01/11/2025 Telephone [facility] [address] [place] [address] David Orlando MD Results 01/11/2025 Orders Only [facility] [address] [place] [address] David Orlando MD Other specified hypothyroidism 01/10/2025 9:45 AM EST Office Visit [facility] [address] [place] [address] David Orlando MD Type 2 diabetes mellitus without complication, without long-term current use of insulin (CMS/HCC) (Primary Dx); Dietary counseling; Exercise counseling; Class 1 obesity due to excess calories with serious comorbidity and body mass index (BMI) of 30.0 to 30.9 in adult; Primary hypertension; Elevated TSH; Chronic pain of right knee 01/10/2025 Orders Only [facility] [address] [place] [address] David Orlando MD 01/10/2025 Travel 01/09/2025 Telephone [facility] [address] [place] [address] David Orlando MD Chart Prep from Last 3 Months Immunizations Name Administration Dates Next Due Influenza injectable quadriv alent IIV4 with preservative 10/13/2018,11/04/2017 Influenza injectable quadrivalent preservative f ree 01/05/2017 Influenza, High Dose Seasonal, Preservative Free 08/28/2024 Influenza, IIV3, injectable 09/03/2014, 2 Influenza, Split (incl. purified surface antigen ) 08/24/2013 Pneumococcal Conjugate PCV 13 01/08/2017 Pneumococcal Conjugate PCV 20 08/28/2024 Tdap 05/17/2017 Zoster, live 05/17/2017 Family History Medical History Relation Name Comments Colon cancer Brother Throat cancer Brother Colon cancer Father Diabetes type II Father Breast cancer Mother Diabetes type II Mother Cervical cancer Sister Relation Name Status Comments Brother Father Mother Sister Social History Tobacco Use Types Packs/Day Years Used Date Smoking Tobacco: Former Cigarettes 0.5 20 1 7 2016 Passive Smoke Exposure: Never Smokeless Tobacco: Never Alcohol Use Standard Drinks/Week Comments Never 0 (1 standard drink = 0.6 oz pur e alcohol) PHQ-2 Answer Date Recorded Patient Health Questionnaire-2 Score 0 01/13/2023 Depression Answer Date Recorded Patient Health Questionnaire-9 Score 1 12/10/2022 Housing Stability Answer Date Recorded What is your housing situation today? I have cas marks 08/21/[address] you li ve. Do you have problems with any of the following? None of the above 08/21/2024 Food Insecurity Answer Date Recorded Within the past 12 months, y ou worried that your food would run out before you got money to buy more: Often true 08/21/2024 Within the past 12 months,th e food you bought just didn't last and you didn't have enough money to get more: Often true Transportation Answer Date Recorded In the past 12 months, has l ack of transportation kept you from medical appts, meetings, work or from getting things needed for daily living? No 08/21/2024 Utilities Answer Date Recorded In the past 12 months, has t he electric, gas, oil or water company threatened to shut off services in your home? No 08/21/2024 Depression Answer Date Recorded Patient Health Questionnaire-2 Score 0 01/10/2025 Internet Access Answer Date Recorded Internet Access Q1 Yes 08/21/2024 Internet Access Q2 Not on file 08/21/2024 Sex and Gender Information Value Date Recorded Sex Assigned at Male 09/28/2022 10:22 AM EDT Legal Sex Male 10:22 AM EDT Gender Identity Male 09/28/2022 10:22 AM EDT Sexual Orientation Straight 09/28/2022 10 :22 AM EDT Last Filed Vital Signs Vital Sign Reading Time Taken Comments Blood Pressure 128/74 02/02/2025 9:55 AM EST Pulse 60 01/10/2025 9:34 AM EST Temperature 36.4 ??C (97.5 ??F) 01/10/2025 9:[address] Respiratory Rate 18 01/10/2025 9:34 AM EST Oxygen Saturation 98% 01/10/2025 9:34 AM EST Inhaled Oxygen Concentration - - Weight 85.5 kg (188 lb 6.4 oz) 01/10/2025 9:34 A M EST Height 168 cm (5' 6.14 ) 01/10/2025 9:34 AM EST Body Mass Index 30.28 01/10/2025 9:34 AM EST Plan of Treatment Upcoming Encounters Date Type Department Care Team (Late st Contact Info) Description 04/09/2025 1:45 PM EDT Office Visit [facility] [address] [place] [address] David Orlando MD [address] [place] [address] Health Maintenance Due Date Last Done Comments CT Colonography 1950 FIT DNA/Cologuard 1950 FIT 1950 FOBT 1950 Sigmoidoscopy 1950 Zoster Vaccines (2 of 3) 07/12/2017 05/17/2017 RSV Patients and Patients Aged 60 years or older (1 - 1-dose 75+ series) 2024 Diabetes: Hemoglobin A1C 04/09/2025 025, 08/28/2024, 08/12/2023, Additional history exists Dental Oral Exam 08/06/2025 02/02/2025, 05/03/2023 Dental Prophylaxis 08/06/2025 02/02/2025, 05/03/2023 SDOH Screening 08/21/2025 08/21/2024 Lipid Panel 08/30/2025 08/30/2024, 08/13/2023 Alcohol/Substance Use Screening 01/10/2026 01/10/2025 COVID-19 Vaccine ( season) 2026 03/04/2021, 02/04/2021 Postponed from 07/30/2024 (Patient Refused) Depression Screening 01/10/2026 01/10/2025, 12/10/19 23 Diabetes: Foot Exam 01/10/2026 01/10/2025, 08/12/2023, 08/12/2023, Additional history exists Diabetes: Urine Protein Screening 01/10/2026 01/10/2025 Colonoscopy 01/20/2026 01/20/2016 Colorectal Cancer Screening 01/20/2026 Dental X-Ray: Bitewings 02/03/2026 02/02/2025, 05/03 Tobacco Screening 04/02/2026 04/02/2025 Eye Exam 03/09/2027 03/09/2025, 02/27, 03/09/2025, Additional history exists DTaP/Tdap/Td Vaccines (2 - Td or Tdap) 05/17/2027 05/17/2017 Dental X-Ray: Full Mouth 02/04/2028 02/02/2025 Influenza Vaccine Completed 08/28/2024, , 11/04/2017, Additional history exists Pneumococcal Vaccine: 50+ Years Completed 08/28/2024, 01/08/2017 Hepatitis C Screening Completed 08/30/2024, 024 HIB Vaccines Aged Out No longer eligi ble based on patient's age to complete this topic HPV Vaccines Aged Out No longer eligi ble based on patient's age to complete this topic Hepatitis A Vaccines Aged Out No long er eligible based on patient's age to complete this topic Hepatitis B Vaccines Aged Out No long er eligible based on patient's age to complete this topic IPV Vaccines Aged Out No longer eligi ble based on patient's age to complete this topic Meningococcal Vaccine Aged Out No rosa sindhu eligible based on patient's age to complete this topic RSV under 20 months Aged Out No longe r eligible based on patient's age to complete this topic Rotavirus Vaccines Aged Out No longer eligible based on patient's age to complete this topic Procedures Procedure Name Priority Date/Time Associated Diagnosis Comments HIGH SENSITIVITY TROPONIN I Routine 04/04/2025 12:08 PM EDT MAGNESIUM Routine 04/04/2025 12:08 PM EDT BASIC METABOLIC PANEL Routine 04/04/2025 12:08 PM EDT HEPATIC FUNCTION PANEL Routine 04/04/2025 12:08 PM EDT CBC WITH AUTO DIFFERENTIAL Routine 04/04/2025 12:08 PM EDT SARS COV2/INFLUENZA A/B AND RSV RNA QL NAAT Routine 04/04/2025 12:[address] HEAD WO CONTRAST Routine 04/04/2025 1 1:55 AM EDT OCT, OPTIC NERVE - OU - BOTH EYES Routine 03/09/2025 10:00 AM EDT Glaucoma of both eyes, unspecified glaucoma type 6 EXTRACTION, ERUPTED TOOTH OR EXPOSED ROOT (ELEVATION/FORCEPS REMOVAL) Routine 02/28/2025 10:00 AM EDT COMPREHENSIVE PERIODONTAL EVALUATION - NEW OR ESTABLISHED PATIENT Routine 02/02/2025 10:00 AM EST PERIODIC ORAL EVALUATION - ESTABLISHED PATIENT Routine 02/02/2025 10:00 AM EST INTRAORAL - COMPLETE SERIES OF RADIOGRAPHIC IMAGES Routine 02/02/2025 10:00 AM EST ORAL HYGIENE INSTRUCTIONS Routine 02/02/2025 10:00 AM EST PROPHYLAXIS - ADULT Routine 02/02/2025 1 0:00 AM EST POCT GLYCATED HEMOGLOBIN, TOTAL Routine 01/10/2025 10:15 AM EST Type 2 diabetes mellitus without complication, without long-term current use of insulin (CMS/HCC) POCT GLUCOSE Routine 01/10/2025 10:14 AM EST Type 2 diabetes mellitus without complication, without long-term current use of insulin (CMS/HCC) T4, FREE Routine 01/10/2025 10:10 AM EST TSH W/REFLEX TO FT4 Routine 01/10/2025 1 0:10 AM EST Elevated TSH ALBUMIN, RANDOM URINE W/CREATININE Routine 01/10/2025 10:10 AM EST Type 2 diabetes mellitus without complication, without long-term current use of insulin (CMS/HCC) Class 1 obesity due to excess calories with serious comorbidity and body mass index (BMI) of 30.0 to 30.9 in adult HEPATITIS C AB W/REFL TO HCV RNA, QN, PCR Routine 08/30/2024 9:41 AM EDT Type 2 diabetes mellitus without complication, without long-term current use of insulin ([facility]/HCC) Primary hypertension LIPID PANEL, STANDARD Routine 08/30/2024 9:41 AM EDT Type 2 diabetes mellitus without complication, without long-term current use of insulin (CMS/HCC) Primary hypertension HM COLONOSCOPY Routine 01/20/2016 from Last 3 Months or Most Recently Relevant to Health Maintenance Results * High Sensitivity Troponin I (04/04/2025 12:08 PM EDT) [facility] TROPONIN I HIGH SENSITIVITY <2.7 <3.5 - 35.0 ng/L [facility] Comment:The Culp high sens itivity Troponin-I results should beused in conjunction with other diagnostic information suchas ECG, clinical observations and information, and patientsymptoms to aid in the diagnosis of VT. 04/04/2025 12:0 8 PM EDT 04/04/2025 12:12 PM EDT us Generic External Data Provider LAB BLOOD ORDERAB LES Final Result [facility] [address] [place] [phone] * SARS-CoV-2 RNA, Influenza A/B, and RSV RNA, Ql NAAT (04/04/2025 12:08 PM EDT) [facility] Influenza A PCR NEGATIVE Negative [facility] Influenza B PCR NEGATIVE Negative [facility] Resp Syncy Virus RNA Qual PCR NEGATIVE Negative [facility] SARS COV2 PCR NEGATIVE Negative [facility] Comment:All test results mus t be correlated with clinical findings.Negative results do not preclude SARS-CoV2, influenza Avirus, influenza B virus and/or RSV infectionand should not be used as the sole basis for treatment orother patient management decisions. Negative results must becombined with clinical observations, patient history, andepidemiological information.This test has not been evaluated for monitoring treatment ofinfection.This test has been authorized by the FDA under an EmergencyUse Authorization (EUA) for use by authorized laboratories.Testing performed on the Primus Power GeneXpert utilizingreal-time RT-PCR.All SARS CoV2 and positive influenza A/B results arereported to [facility]. 04/04/2025 12:0 8 PM EDT 04/04/2025 12:12 PM EDT us Generic External Data Provider LAB MICROBIOLOGY - GENERAL ORDERABLES Final Result [facility] [address] [place] [phone] * (ABNORMAL) CBC auto differential (04/04/2025 12:08 PM EDT) White Blood Count 5.5 4.8 - 10.8 X10*3/uL [facility] Red Blood Count 4.46(L) 4.60 - 5.80 X10*6/uL [facility] Hemoglobin 13.6(L) 14.0 - 18.0 g/dl [facility] Hematocrit 38.7(L) 42.0 - 52.0 % [facility] Mean Corpuscular Volume 86.8 80.0 - 98.0 fL [facility] Mean Corpuscular Hemoglobin 30.5 27.0 - 33.0 pg [facility] Mean Corpuscular HGB Conc 35.1 31.0 - 36.0 g/dl [facility] Red Cell Distribution Width 13.1 11.0 - 16.0 % [facility] Platelet Count 182 160 - 400 X10*3/uL [facility] Mean Platelet Volume 9.4 9.4 - 12.4 fL [facility] Neutrophils Percent Auto 70.1 45 - 73 % [facility] Imm Gran Pct Auto 0.4 0.0 - 0.4 % [facility] Lymphocytes Percent Auto 17.4(L) 20 - 40 % [facility] Monocytes Percent Auto 8.7 2 - 11 % [facility] Eosinophils Percent Auto 2.5 0 - 4 % [facility] Basophils Percent Auto 0.9 0 - 2 % [facility] NRBC Pct Auto 0.0 0.0 - 0.2 /100WBC [facility] Neutrophils Absolute Auto 3.9 2.0 - 8.3 x10*3/uL [facility] Imm Gran Abs Auto 0.02 0.00 - 0.03 X10*3/uL [facility] Lymphocytes Absolute Auto 1.0(L) 1.2 - 4.9 X10*3/uL [facility] Monocytes Absolute Auto 0.5 0.1 - 1.2 X10*3/uL [facility] Eosinophils Absolute Auto 0.1 0.0 - 0.4 X10*3/uL [facility] Basophils Absolute Auto 0.1 0.0 - 0.2 X10*3/uL [facility] NRBC Abs Auto 0.000 0.0 - 0.012 X10*3/uL [facility] 04/04/2025 12:0 8 PM EDT 04/04/2025 12:12 PM EDT us Generic External Data Provider LAB BLOOD ORDERAB LES Final Result [facility] [address] [place], [place] [phone] * Magnesium (04/04/2025 12:08 PM EDT) Magnesium 1.9 1.6 - 2.6 mg/dL [facility] 04/04/2025 12:0 8 PM EDT 04/04/2025 12:12 PM EDT us Generic External Data Provider LAB BLOOD ORDERAB LES Final Result Performing Organization Address [facility]/ZIP Co de Phone Number [facility] [address] [place] [phone] * (ABNORMAL) Hepatic Function Panel (04/04/2025 12:08 PM EDT) Bilirubin, Total 0.5 0.0 - 1.0 mg/dL [facility] Bilirubin, Direct 0.2 0.0 - 0.5 mg/dL [facility] Aspartate Amino Transferase 44(H) 5 - 37 U/L [facility] Alanine Aminotransferase 24 0 - 40 U/L [facility] Total Protein 6.8 6.5 - 8.0 g/dL [facility] Albumin Level 4.0 3.5 - 5.0 g/dL [facility] Alkaline Phosphatase 109 39 - 117 U/L [facility] 04/04/2025 12:0 8 PM EDT 04/04/2025 12:12 PM EDT us Generic External Data Provider LAB BLOOD ORDERAB LES Final Result Performing Organization Address [facility] Co de Phone Number [facility] [address] [place] [phone] * (ABNORMAL) Basic Metabolic Panel (04/04/2025 12:08 PM EDT) Sodium 140 135 - 145 mmol/L [facility] Potassium 4.3 3.3 - 5.1 mmol/L [facility] Chloride 107 96 - 108 mmol/L [facility] Carbon Dioxide 25 22 - 29 mmol/L [facility] Anion Gap 12 12 - 20 [facility] Urea Nitrogen (BUN) 11 9 - 16 mg/dL [facility] Creatinine, Serum 0.89 0.5 - 1.4 mg/dL [facility] Creatinine Clr Calc Pharmacy 64.7 [facility] Comment:eGFR (calculated fro m the MDRD study equation) and eCrCl(calculated from the Cockcroft-Gault equation) are based ondifferent parameters and may not yield comparable results.If eCrCl result is absurd, please check patient'sheight/weight. Estimated Glomerular Filt Rate >60 [facility] Comment:Chronic Kidney Disea se: Estimated GFR < 60 mL/min/[id number] Kidney Disease: Estimated GFR < 15 mL/min/1.73m2 Glucose 252(H) 60 - 115 mg/dL [facility] Calcium 9.2 8.4 - 10.2 mg/dL [facility] 04/04/2025 12:0 8 PM EDT 04/04/2025 12:12 PM EDT us Generic External Data Provider LAB BLOOD ORDERAB LES Final Result [facility] [address] [place] [phone] * CT Head w/o Contrast (04/04/2025 11:55 AM EDT) Anatomical Region Laterality Modality Head, Neck Computed Tomogra phy 04/04/2025 11:5 5 AM EDT Narrative 04/04/2025 2:28 PM EDT ? [facility] ?[address] ?[place] [id number] ? CT Scan Report ? Signed ? Patient: Hong Sanders ?MR#: [id number] ?? [id number] ? : 1950 ?Acct:[id number] ? Age/Sex: 74 / M ?ADM Date: //25 ? Loc: HO.ED ? Attending Dr: ? Ordering Physician: Slime Peck ?? Date of Service: 04/04/25 ?? Procedure(s): CT head/brain wo IV con ?? Accession Number(s): [id number] ? cc: David Orlando MD; Slime Peck ? Report Number: ?? [id number]: Total DLP = ??710.00 mGy-cm ?? EXAMINATION: CT HEAD WITHOUT IV CONTRAST ? HISTORY: fall 2 mos ago, headache, dizziness. ? TECHNIQUE: ? Unenhanced helical CT of the head was performed per standard ?? departmental protocol. Coronal and sagittal reformats of the head were ?? also evaluated. One or more of the following techniques was used for ?? dose reduction: Automated exposure control, adjustment of the mA and/or ?? kV according to patient size, use of iterative reconstruction technique. ? DLP: 710 mGy-cm ? COMPARISON: There are no prior studies for comparison. ? FINDINGS: ? BRAIN: ??There is diffuse prominence of the ventricular system and ?? cortical sulci, consistent with atrophy. Periventricular and ?? subcortical white matter hypodensities are noted which are nonspecific, ?? but often seen in the setting of small vessel ischemic disease. ??There ?? is no mass effect or midline shift. ??No intra- or extra-axial fluid ?? collections are identified. ? SINUSES: The visualized paranasal sinuses are clear. ??The mastoid air ?? cells and middle ear cavities are well pneumatized. ? ORBITS: The visualized orbits are unremarkable. ? BONES/SOFT TISSUES: The extracranial soft tissues are unremarkable. The ?? calvarium is intact. No suspicious lytic or sclerotic lesions. ? CT/CT head/brain wo IV con ?? IMPRESSION: ?? No evidence of intracranial hemorrhage. ? Electronically signed by: ??Brendon Skinner MD ??04/04/2025 02:25 PM EDT ?? RP ? Dictated By: ?Brendon Skinner MD ? Signed By: ?<Electronically signed by Brendon Skinner MD in OV> ?04/04/25 1425 ? DD/ 1155 ? TD/TT: 04/04/25 1420 ? Child Neurologist: ? Procedure Note Ko Sandhu - 04/04/[address] [address] [address] Scan Report Signed Patient: Renee Sanders#: [id number] : 1950Acct:[id number] Age/Sex: 74 / MADM Date: 04/04/25 Loc: HO.ED Attending Dr: Ordering Physician: Slime Peck Date of Service: 04/04/25 Procedure(s): CT head/brain wo IV con Accession Number(s): [id number] cc: David Orlando MD; Slime Peck Report Number: [id number]: Total DLP = 710.00 mGy-cm EXAMINATION: CT HEAD WITHOUT IV CONTRAST HISTORY: fall 2 mos ago, headache, dizziness. TECHNIQUE: Unenhanced helical CT of the head was performed per standard departmental protocol. Coronal and sagittal reformats of the head were also evaluated. One or more of the following techniques was used for dose reduction: Automated exposure control, adjustment of the mA and/or kV according to patient size, use of iterative reconstruction technique. DLP: 710 mGy-cm COMPARISON: There are no prior studies for comparison. FINDINGS: BRAIN: There is diffuse prominence of the ventricular system and cortical sulci, consistent with atrophy. Periventricular and subcortical white matter hypodensities are noted which are nonspecific, but often seen in the setting of small vessel ischemic disease. There is no mass effect or midline shift. No intra- or extra-axial fluid collections are identified. SINUSES: The visualized paranasal sinuses are clear. The mastoid air cells and middle ear cavities are well pneumatized. ORBITS: The visualized orbits are unremarkable. BONES/SOFT TISSUES: The extracranial soft tissues are unremarkable. The calvarium is intact. No suspicious lytic or sclerotic lesions. CT/CT head/brain wo IV con IMPRESSION: No evidence of intracranial hemorrhage. Electronically signed by: Brendon Skinner MD 04/04/2025 02:25 PM EDT Dictated By: Brendon Skinner MD Signed By: <Electronically signed by Brendon Skinner MD in OV> 04/04/25 1425 DD/ 1155 TD/TT: 04/04/25 1420 Child Neurologist: [facility] External Provider IMG CT PROCEDURES Final Result * OCT, Optic Nerve - OU - Both Eyes (03/09/2025 10:00 AM EDT) Narrative Fozia Gongora, OD - 03/30/2025 3:56 PM EDT Images from the original result were not included. OCT OPTIC NERVE INTERPRETATION Optical Coherence Tomography Interpretation Report Test Details: Measurements: OD ??OS C/D Horizontal 0.73 ??0.85 C/D Vertical 0.69 ??0.85 Disc area 2.26 mm 2 ??2.42 mm 2 RNFL Average 92 microns ??83 microns ?? 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 Will refer to network management specialist for further evaluation. Fozia Gongora OD OPHTH TOMOGRAPHY Final Result * (ABNORMAL) POCT HGB A1C (01/10/2025 10:15 AM EST) Hemoglobin A1C 7.8(A) 4.0 - 6.0 % QC Media Lot # [id number] Lot# Expiration Date Blood 01/10/2025 10:1 5 AM EST Result [facility] David Orlando MD POINT OF CARE TEST ENTER/ED IT ORDERABLES Final Result * (ABNORMAL) POCT Glucose (01/10/2025 10:14 AM EST) Glucose Blood, POC 231(A) 60 - 200 mg/dL QC Media Lot # [id number] Lot# Expiration Date [id number] Blood Capillary blood specimen / Unknown 01/10/2025 10:14 AM EST David Orlando MD POINT OF CARE TEST ENTER/ED IT ORDERABLES Final Result * (ABNORMAL) TSH W/Reflex to FT4 (01/10/2025 10:10 AM EST) TSH reflex Free T4 8.23(H) 0.32 - 4.0 uIU/mL [facility] Blood Venous blood specimen / Unknown 01/10/2025 10:10 AM EST 01/11/2025 2:09 PM EST us David Orlando MD LAB BLOOD ORDERABLES Final Result Performing Organization Address [facility] Co de Phone Number [facility] [address] [place] [phone] * (ABNORMAL) Albumin, Random Urine W/Creatinine (01/10/2025 10:10 AM EST) Creatinine, Urine 116.37 mg/dL [facility] Microalbumin Urine 35.0 mg/L [facility] Microalbum Creatinine Ratio Ur 30.0(H) <30 ug/mg cr [facility] Comment:Albumin/Creatinine R atio Reference Ranges: Normal: < 30 ug/mg creatinine Microalbuminuria: 30 - 300 ug/mg creatinineClinical Albuminuria: > 300 ug/mg creatinine Urine (Urine, Random) 01/10/2025 10:10 AM EST 01/11/2025 1:51 PM EST us David Orlando MD LAB URINE ORDERABLES Final Result Performing Organization Address City/[facility]/ZIP Co de Phone Number [facility] [address] [place] [phone] * T4, Free (01/10/2025 10:10 AM EST) Free T4 (Free Thyroxine) 0.90 0.71 - 1.85 ng/dL [facility] 01/10/2025 10:1 0 AM EST 01/11/2025 2:09 PM EST David Orlando MD LAB BLOOD ORDERABLES Final Result Performing Organization Address [facility]/ZIP Co de Phone Number [facility] [address] [place] [phone] * (ABNORMAL) Hepatitis C Antibody with Reflex to HCV, RNA, Quantitative, Real- Time PCR (08/30/2024 9:41 AM EDT) Hepatitis C Antibody Reactive( A) Nonreactive [facility] Comment:Presumptive evidence of antibodies to HCV. Blood Venous blood specimen / Unknown 08/30/2024 9:41 AM EDT 08/30/2024 2:37 PM EDT us David Orlando MD LAB BLOOD ORDERABLES Final Result Performing Organization Address [facility] Co de Phone Number [facility] [address] [place] [phone] * Lipid Panel, Standard (08/30/2024 9:41 AM EDT) Triglycerides 87 <150 mg/dL [facility] Comment:Desirable Triglyceri de: less than 150 mg/dLBorderline High Triglyceride 150-199 mg/dLHigh Triglyceride: 200-499 mg/dLVery High Triglyceride: greater than or equal to 5OO mg/dL Cholesterol 162 <200 mg/dL [facility] Comment:Desirable Cholestero l: less than 200 mg/dLBorderline High Cholesterol: 200-239 mg/dLHigh Cholesterol: greater than 239 mg/dL LDL Cholesterol Calculated 72 <100 mg/dL [facility] Comment:Desirable LDL: less than 100 mg/dLNear Optimal/Above Optimal LDL: 110- 129 mg/dLBorderline High LDL: 130-159 mg/dLHigh LDL: 160-189 mg/dLVery High LDL: greater than or equal to 190 mg/dL HDL Cholesterol 73 >40 mg/dL [facility] Comment:Desirable HDL: great er than 40 mg/dL Note: This HDL assay may give artificially low results in patients with liver disease. Blood Venous blood specimen / Unknown 08/30/2024 9:41 AM EDT 08/30/2024 2:37 PM EDT David Orlando MD LAB BLOOD ORDERABLES Final Result [facility] [address] [place] [phone] * Colonoscopy (01/20/2016) Pathologist [facility] Colonoscopy performed us Historical Provider HEALTH MAINTENANCE Final Result from Last 3 Months or Most Recently Relevant to Health Maintenance Insurance # [address] [place] [address] [employer]ACEMENT [address], [place] [address] DENTAL - [employer] MED[employer]ARE Care Teams Machine Operator Assistant Relationship Specialty Start Date End Date David Orlando MD [address] [place] [phone] PCP - General Internal Medicine 04/05/12
--- OUTSIDE RECORDS SUMMARY | 2025-04-04 15:40 | XMS_ITS | Encounter Summary ---
Author Organization [employer] Address [address] [facility] [address] [place] [address] Care Team Providers Care Securities Trader Name Role Phone David Orlando MD Primary Care Provider [phone] Encounter Details Date Type Department Care Team ([facility] Contact Info) Description 06/26/2024 Orders Only [facility] MED & PEDS [address] [place], [place] [phone] David Orlando MD [address] [place] [phone] Social History Tobacco Use Types Packs/Day Years Used Date Smoking Tobacco: Former Cigarettes 0.5 20 2016 Passive Smoke Exposure: Never Smokeless Tobacco: Never Alcohol Use Standard Drinks/Week Comments Never 0 (1 standard drink = 0.6 oz pur e alcohol) PHQ-2 Answer Date Recorded Patient Health Questionnaire-2 Score 0 01/13/2023 Depression Answer Date Recorded Patient Health Questionnaire-9 Score 1 12/10/2022 Housing Stability Answer Date Recorded What is your housing situation today? I have cas marks 09/17/[address] you li ve. Do you have problems with any of the following? None of the above 09/17/2023 Food Insecurity Answer Date Recorded Within the past 12 months, y ou worried that your food would run out before you got money to buy more: Never True 09/17/2023 Within the past 12 months,th e food you bought just didn't last and you didn't have enough money to get more: Never True Transportation Answer Date Recorded In the past 12 months, has l ack of transportation kept you from medical appts, meetings, work or from getting things needed for daily living? No 09/17/2023 Utilities Answer Date Recorded In the past 12 months, has t he electric, gas, oil or water company threatened to shut off services in your home? No 09/17/2023 Depression Answer Date Recorded Patient Health Questionnaire-2 Score 0 01/13/2023 Sex and Gender Information Value Date Recorded Sex Assigned at Male 09/28/2022 10:22 AM EDT Legal Sex Male 10:22 AM EDT Gender Identity Male 09/28/2022 10:22 AM EDT Sexual Orientation Straight 09/28/2022 10 :22 AM EDT documented as of this encounter Plan of Treatment Upcoming Encounters Date Type Department Care Team ([facility] st Contact Info) Description 04/09/2025 1:45 PM EDT Office Visit [facility] MED & PEDS [address] [place] [address] David Orlando MD [address] [place] [address] documented as of this encounter Visit Diagnoses Not on filedocumented in this encounter Additional Health Concerns Assessment Noted Time PHQ-9 Depression Total Score: 1 12/10/19 23 10:30 AM EST documented as of this encounter Care Teams Securities Trader Relationship Specialty Start Date End Date David Orlando MD [address] [place] [address] PCP - General Internal Medicine 04/05/12 documented as of this encounter
--- OUTSIDE RECORDS SUMMARY | 2025-04-04 15:40 | XMS_ITS | Encounter Summary ---
Author Organization [employer] Address [address] [place] [address] Care Team Providers Care Golf Course Ranger Name Role Phone David Orlando MD Primary Care Provider [phone] Encounter Details Date Type Department Care Team ([facility] Contact Info) Description 03/25/2023 Telephone [facility] [address] [place] [address] Lesly Torres DDS Social History Tobacco Use Types Packs/Day Years Used Date Smoking Tobacco: Never Passive Smoke Exposure: Never Smokeless Tobacco: Never Alcohol Use Standard Drinks/Week Comments Never 0 (1 standard drink = 0.6 oz pur e alcohol) PHQ-2 Answer Date Recorded Patient Health Questionnaire-2 Score 0 01/13/2023 Depression Answer Date Recorded Patient Health Questionnaire-9 Score 1 12/10/2022 Depression Answer Date Recorded Patient Health Questionnaire-2 Score 0 01/13/2023 Sex and Gender Information Value Date Recorded Sex Assigned at Male 09/28/2022 10:22 AM EDT Legal Sex Male 10:22 AM EDT Gender Identity Male 09/28/2022 10:22 AM EDT Sexual Orientation Straight 09/28/2022 10 :22 AM EDT COVID-19 Exposure Response Date Recorded In the last 10 days, have yo u been in contact with someone who was confirmed or suspected to have Coronavirus/COVID-19? No / Unsure 03/10/2023 10:44 AM EDT documented as of this encounter Plan of Treatment Upcoming Encounters Date Type Department Care Team ([facility] Contact Info) Description 04/09/2025 1:45 PM EDT Office Visit [facility] MED [facility] PEDS [address] [place] [address] David Orlando MD [address] [place] [address] documented as of this encounter Visit Diagnoses Not on filedocumented in this encounter Additional Health Concerns Assessment Noted Time PHQ-9 Depression Total Score: 1 12/10/19 23 10:30 AM EST documented as of this encounter Care Teams Golf Course Ranger Relationship Specialty Start Date End Date David Orlando MD [address] [place] [address] PCP - General Internal Medicine 04/05/12 documented as of this encounter
--- OUTSIDE RECORDS SUMMARY | 2025-04-04 15:40 | XMS_ITS | Clinical Summary ---
Author Organization [facility] Address [address] [place] [address] Care Team Providers Care Transition Manager Name Role Phone David Orlando MD Primary Care Provider [phone] Social History Tobacco Use Types Packs/Day Years Used Date Smoking Tobacco: Never Assessed Sex and Gender Information Value Date Recorded Sex Assigned at Not on file Legal Sex Male 11:25 PM EST Gender Identity Not on file Sexual Orientation Not on file Plan of Treatment Health Maintenance Due Date Last Done Comments DTaP,Tdap,and Td Vaccines (1 - Tdap) 1968 Pneumococcal Vaccine: 50+ Ye ars (1 of 1 - PCV) 1999 Zoster Vaccines (1 of 2) 1999 Abdominal Aortic Aneurysm (A AA) Screen 11/08/2022 Cholesterol Screening (Lipid Panel) 11/08/2022 Colorectal Cancer Screening: Colonoscopy 11/08/2022 Depression Screening 11/08/2022 Falls Risk Assessment 11/08/2022 Hepatitis C Screening 11/08/2022 Social Influencers of Health Screening 11/08/2022 COVID-19 Vaccine ( - 2023-2 5 season) 2024 RSV Immunization Adult Patie nts (1 - 1-dose 75+ series) 2024 Influenza Vaccine (Season Ended) 2025 HIB Vaccines Aged Out No longer eligi [...] on patient's age to complete this topic MMR Vaccines Aged Out No longer eligi ble based on patient's age to complete this topic Meningococcal ACWY Vaccine Aged Out N o longer eligible based on patient's age to complete this topic Meningococcal B Vaccine Aged Out No l onger eligible based on patient's age to complete this topic RSV Immunization Patients Un angel 20 months Aged Out No longer eligible b ased on patient's age to complete this topic Varicella Vaccines Aged Out No longer eligible based on patient's age to complete this topic Care Teams Transition Manager Relationship Specialty Start Date End Date David Orlando MD [address] [place] [address] PCP - General Internal Medicine 11/20/21
--- OUTSIDE RECORDS SUMMARY | 2025-04-04 15:40 | XMS_ITS | Encounter Summary ---
Author Organization [employer] Address [address] [facility] [address] [place] [address] Care Team Providers Care Touch Up Carver Name Role Phone David Orlando MD Primary Care Provider [phone] Reason for Visit * Reason Comments Med Refill Encounter Details Date Type Department Care Team ([facility] Contact Info) Description 03/30/2025 Refill [facility] MED & PEDS [address] [place], [place] [phone] David Orlando MD [address] [place] [address] Social History Tobacco Use Types Packs/Day Years Used Date Smoking Tobacco: Former Cigarettes 0.5 20 1 2016 Passive Smoke Exposure: Never Smokeless Tobacco: [...] Upcoming Encounters Date Type Department Care Team ([facility] st Contact Info) Description 04/09/2025 1:45 PM EDT Office Visit [facility] MED & PEDS [address] [place] [address] David Orlando MD [address] [place] [address] documented as of this encounter Visit Diagnoses Not on filedocumented in this encounter Additional Health Concerns Assessment Noted Time PHQ-9 Depression Total Score: 1 12/10/19 23 10:30 AM EST documented as of this encounter Care Teams Touch Up Carver Relationship Specialty Start Date End Date David Orlando MD [address] [place] [address] PCP - General Internal Medicine 04/05/12 documented as of this encounter
--- OUTSIDE RECORDS SUMMARY | 2025-04-04 15:40 | XMS_ITS | Encounter Summary ---
Author Organization [employer] Address [address] [facility] [place] [address] Care Team Providers Care Education Administrator Name Role Phone David Orlando MD Primary Care Provider [phone] Encounter Details Date Type Department Care Team ([facility] st Contact Info) Description 04/04/2025 Orders Only GENERIC EXTERNAL DATA DEPARTMENT Provider, Generic External Data Social History Tobacco Use Types Packs/Day Years [...] Upcoming Encounters Date Type Department Care Team ([facility] st Contact Info) Description 04/09/2025 1:45 PM EDT Office Visit [facility] [address] [place] [address] David Orlando MD [address] [place] [address] documented as of this encounter Procedures Procedure Name Priority Date/Time Associated Diagnosis Comments HIGH SENSITIVITY TROPONIN I Routine 04/04/2025 12:08 PM EDT SARS COV2/INFLUENZA A/B AND RSV RNA QL NAAT Routine 04/04/2025 12:08 PM EDT CBC WITH AUTO DIFFERENTIAL Routine 04/04/2025 12:08 PM EDT MAGNESIUM Routine 04/04/2025 12:08 PM EDT HEPATIC FUNCTION PANEL Routine 04/04/2025 12:08 PM EDT BASIC METABOLIC PANEL Routine 04/04/2025 12:[address] HEAD WO CONTRAST Routine 04/04/2025 1 1:55 AM EDT documented in this encounter Results * SARS-CoV-2 RNA, Influenza A/B, and RSV RNA, Ql NAAT (04/04/2025 12:08 PM EDT) Influenza A PCR NEGATIVE Negative [facility] Influenza B PCR NEGATIVE Negative [facility] Resp Syncy Virus RNA Qual PCR NEGATIVE Negative [facility] SARS COV2 PCR NEGATIVE Negative [facility] Comment:All test results mus t be [...] use by authorized laboratories.Testing performed on the LOG607 GeneXpert utilizingreal-time RT-PCR.All SARS CoV2 and positive influenza A/B results arereported to [facility]. 04/04/2025 12:0 8 PM EDT 04/04/2025 12:12 PM EDT Generic External Data Provider LAB MICROBIOLOGY - GENERAL ORDERABLES Final Result Performing Organization Address [facility]/ZIP Co de Phone Number [facility] [address] [place] [phone] * High Sensitivity Troponin I (04/04/2025 12:08 PM EDT) TROPONIN I HIGH SENSITIVITY <2.7 <3.5 - 35.0 ng/L [facility] Comment:The Culp high sens itivity Troponin-I results should beused in conjunction with other diagnostic information suchas ECG, clinical observations and information, and patientsymptoms to aid in the diagnosis of AL. 04/04/2025 12:0 8 PM EDT 04/04/2025 12:12 PM EDT Generic External Data Provider LAB BLOOD ORDERAB LES Final Result Performing Organization Address [facility]/ZIP Co de Phone Number [facility] [address] [place] [address] [phone] * Magnesium (04/04/2025 12:08 PM EDT) Magnesium 1.9 1.6 - 2.6 mg/dL [facility] 04/04/2025 12:0 8 PM EDT 04/04/2025 12:12 PM EDT us Generic External Data Provider LAB BLOOD ORDERAB LES Final Result [facility] [address] [place] [phone] * (ABNORMAL) Basic Metabolic Panel (04/04/2025 12:08 PM EDT) Sodium 140 135 - 145 mmol/L [facility] Potassium 4.3 3.3 - 5.1 mmol/L [facility] Chloride 107 96 - 108 mmol/L [facility] Carbon Dioxide 25 22 - 29 mmol/L [facility] Anion Gap 12 12 - 20 [facility] Urea Nitrogen (BUN) 11 9 - 16 mg/dL [facility] Creatinine, Serum 0.89 0.5 - 1.4 mg/dL [facility] Creatinine Clr Calc Pharmacy 64.7 [facility] Comment:eGFR (calculated fro m the MDRD study equation) and eCrCl(calculated from the Cockcroft-Gault equation) are based ondifferent parameters and may not yield comparable results.If eCrCl result is absurd, please check patient'sheight/weight. Estimated Glomerular Filt Rate >60 [facility] Comment:Chronic Kidney Disea se: Estimated GFR < 60 mL/min/1.41h1Exxzxf Kidney Disease: Estimated GFR < 15 mL/min/1.73m2 Glucose 252(H) 60 - 115 mg/dL [facility] Calcium 9.2 8.4 - 10.2 mg/dL [facility] 04/04/2025 12:0 8 PM EDT 04/04/2025 12:12 PM EDT us Generic External Data Provider LAB BLOOD ORDERAB LES Final Result Performing Organization Address City/[facility]/ZIP Co de Phone Number [facility] [address] [place] [phone] [phone] * (ABNORMAL) Hepatic Function Panel (04/04/2025 12:08 PM EDT) [facility] Bilirubin, Total 0.5 0.0 - 1.0 mg/dL [facility] Bilirubin, Direct 0.2 0.0 - 0.5 mg/dL [facility] Aspartate Amino Transferase 44(H) 5 - 37 U/L [facility] Alanine Aminotransferase 24 0 - 40 U/L [facility] Total Protein 6.8 6.5 - 8.0 g/dL [facility] Albumin Level 4.0 3.5 - 5.0 g/dL [facility] Alkaline Phosphatase 109 39 - 117 U/L [facility] 04/04/2025 12:0 8 PM EDT 04/04/2025 12:12 PM EDT us Generic External Data Provider LAB BLOOD ORDERAB LES Final Result Performing Organization Address City/[facility]/ZIP Co de Phone Number [facility] [address] [place] [phone] * (ABNORMAL) CBC auto differential (04/04/2025 12:08 PM EDT) [facility] White Blood Count 5.5 4.8 - 10.8 X10*3/uL [facility] Red Blood Count 4.46(L) 4.60 - 5.80 X10*6/uL [facility] Hemoglobin 13.6(L) 14.0 - 18.0 g/dl [facility] Hematocrit 38.7(L) 42.0 - 52.0 % [facility] Mean Corpuscular Volume 86.8 80.0 - 98.0 fL [facility] Mean Corpuscular Hemoglobin 30.5 27.0 - 33.0 pg [facility] Mean Corpuscular HGB Conc 35.1 31.0 - 36.0 g/dl [facility] Red Cell Distribution Width 13.1 11.0 - 16.0 % [facility] Platelet Count 182 160 - 400 X10*3/uL [facility] Mean Platelet Volume 9.4 9.4 - 12.4 fL [facility] Neutrophils Percent Auto 70.1 45 - 73 % [facility] Imm Gran Pct Auto 0.4 0.0 - 0.4 % [facility] Lymphocytes Percent Auto 17.4(L) 20 - 40 % [facility] Monocytes Percent Auto 8.7 2 - 11 % [facility] Eosinophils Percent Auto 2.5 0 - 4 % [facility] Basophils Percent Auto 0.9 0 - 2 % [facility] NRBC Pct Auto 0.0 0.0 - 0.2 /100WBC [facility] Neutrophils Absolute Auto 3.9 2.0 - 8.3 x10*3/uL [facility] Imm Gran Abs Auto 0.02 0.00 - 0.03 X10*3/uL [facility] Lymphocytes Absolute Auto 1.0(L) 1.2 - 4.9 X10*3/uL [facility] Monocytes Absolute Auto 0.5 0.1 - 1.2 X10*3/uL [facility] Eosinophils Absolute Auto 0.1 0.0 - 0.4 X10*3/uL [facility] Basophils Absolute Auto 0.1 0.0 - 0.2 X10*3/uL [facility] NRBC Abs Auto 0.000 0.0 - 0.012 X10*3/uL [facility] 04/04/2025 12:0 8 PM EDT 04/04/2025 12:12 PM EDT us Generic External Data Provider LAB BLOOD ORDERAB LES Final Result [facility] [address] [place] [phone] [phone] * CT Head w/o Contrast (04/04/2025 11:55 AM EDT) Anatomical Region Laterality Modality Head, Neck Computed Tomogra phy 04/04/2025 11:5 5 AM EDT Narrative 04/04/2025 2:28 PM EDT ? [facility] ?[address] ?[place], [place] [address] ? [address] Scan Report ? Signed ? Patient: Hong Sanders ?MR#: [id number] ?? [id number] ? : 1950 ?Acct:[id number] ? Age/Sex: 74 / M ?ADM Date: 04/04/25 ? Loc: HO.ED ? Attending Dr: ? Ordering Physician: Slime Peck ?? Date of Service: 04/04/25 ?? Procedure(s): CT head/brain wo IV con ?? Accession Number(s): [id number] ? cc: David Orlando MD; Slime Peck ? Report Number: ?? [id number]: Total DLP = ??710.00 mGy-cm ?? EXAMINATION: [...] ??Brendon Skinner MD ??04/04/2025 02:25 PM EDT ? Dictated By: ?Brendon Skinner MD ? Signed By: ?<Electronically signed by Brendon Skinner MD in OV> ?04/04/25 1425 ? DD/ 1155 ? TD/TT: 04/04/25 1420 ? Fluorescent Lamp Replacer: ? Procedure Note Donotuseinterpreter, Image - 04/04/[address] [place] [address] [address] Scan Report Signed Patient: Hong Sanders#: [id number] : 1950Acct:[id number] Age/Sex: 74 / MADM Date: 04/04/25 Loc: HO.ED Attending Dr: Ordering Physician: Slime Peck Date of Service: 04/04/25 Procedure(s): CT head/brain wo IV con Accession Number(s): [id number] cc: David Orlando MD; Slime Peck Report Number: [id number]: Total DLP = 710.00 mGy-cm EXAMINATION: CT [...] Brendon Skinner MD 04/04/2025 02:25 PM EDT RP Dictated By: Brendon Skinner MD Signed By: <Electronically signed by Brendon Skinner MD in OV> 04/04/25 1425 DD/ 1155 TD/TT: 04/04/25 1420 Fluorescent Lamp Replacer: [facility] External Provider IMG CT PROCEDURES Final Result documented in this encounter Visit Diagnoses Not on filedocumented in this encounter Additional Health Concerns Assessment Noted Time PHQ-9 Depression Total Score: 1 12/10/19 23 10:30 AM EST documented as of this encounter Care Teams Education Administrator Relationship Specialty Start Date End Date David Orlando MD [address] [place] [phone] PCP - General Internal Medicine 04/05/12 documented as of this encounter
--- OUTSIDE RECORDS SUMMARY | 2025-04-04 15:40 | XMS_ITS | Encounter Summary ---
Author Organization [employer] Address [address] [facility] 7t [place] [address] Care Team Providers Care Cephalometric Analyst Name Role Phone David Orlando MD Primary Care Provider [phone] Encounter Details Date Type Department Care Team ([facility] Contact Info) Description 07/12/2024 Orders Only [facility] MED & PEDS [address] [place], [place] [phone] David Orlando MD [address] [place] [address] Social History Tobacco Use Types Packs/Day Years [...] Upcoming Encounters Date Type Department Care Team ([facility] st Contact Info) Description 04/09/2025 1:45 PM EDT Office Visit [facility] MED [facility] PEDS [address] [place] [address] David Orlando MD [address] [place] [address] documented as of this encounter Visit Diagnoses Not on filedocumented in this encounter Additional Health Concerns Assessment Noted Time PHQ-9 Depression Total Score: 1 12/10/19 23 10:30 AM EST documented as of this encounter Care Teams Cephalometric Analyst Relationship Specialty Start Date End Date David Orlando MD [address] [place] [address] PCP - General Internal Medicine 04/05/12 documented as of this encounter
--- OUTSIDE RECORDS SUMMARY | 2025-04-04 15:40 | XMS_ITS | Encounter Summary ---
Author Organization [employer] Address [address] [facility] [address] h [address] [address] Care Team Providers Care Child Care Director Name Role Phone David Orlando MD Primary Care Provider [phone] Encounter Details Date Type Department Care Team (Latest Contact Info) Description 08/19/2023 Orders Only [facility] MED & PEDS [address] [place], [place] [phone] David Orlando MD [address] [place], [place] [phone] Hypercholesterolemia (Primary Dx); Elevated TSH Social History Tobacco Use Types Packs/Day Years [...] Description 04/09/2025 1:45 PM EDT Office Visit [facility] PED[facility] [address] [place], [place] [phone] David Orlando MD [address] [place] [address] Scheduled Orders Name Type Priority Associated Diagnoses Orde r Schedule TSH W/Reflex to FT4 Lab Routine Hypercholesterolemia Elevated TSH Expected: 08/19/2023 (Approximate), Expires: 08/19/2024 documented as of this encounter Visit Diagnoses Diagnosis Hypercholesterolemia- Primary Pure hypercholesterolemia Elevated TSH Other abnormal blood chemistry documented in this encounter Additional Health Concerns Assessment Noted Time PHQ-9 Depression Total Score: 1 12/10/19 23 10:30 AM EST documented as of this encounter Care Teams Child Care Director Relationship Specialty Start Date End Date David Orlando MD [address] [place] [address] PCP - General Internal Medicine 04/05/12 documented as of this encounter
--- OUTSIDE RECORDS SUMMARY | 2025-04-04 15:40 | XMS_ITS | Encounter Summary ---
Author Organization [employer] Address [address] [facility] 7t [place] [address] Care Team Providers Care Banjo Repairer Name Role Phone David Orlando MD Primary Care Provider [phone] Encounter Details Date Type Department Care Team ([facility] Contact Info) Description 01/11/2025 Orders Only [facility] MED & PEDS [address] [place], [place] [phone] David Orlando MD [address] [place], [place] [phone] Other specified hypothyroidism Social History Tobacco Use Types Packs/Day Years [...] Upcoming Encounters Date Type Department Care Team ([facility] st Contact Info) Description 04/09/2025 1:45 PM EDT Office Visit [facility] MED [facility] PED[facility] [address] [place] [address] David Orlando MD [address] [place] [address] documented as of this encounter Visit Diagnoses Diagnosis Other specified hypothyroidism documented in this encounter Additional Health Concerns Assessment Noted Time PHQ-9 Depression Total Score: 1 12/10/19 23 10:30 AM EST documented as of this encounter Care Teams Banjo Repairer Relationship Specialty Start Date End Date David Orlando MD [address] [place] [address] PCP - General Internal Medicine 04/05/12 documented as of this encounter
--- OUTSIDE RECORDS SUMMARY | 2025-04-04 15:40 | XMS_ITS | Encounter Summary ---
Author Organization [employer] Address [address] [facility] 7t [place] [address] Care Team Providers Care Public Service Representative Name Role Phone David Orlando MD Primary Care Provider [phone] Encounter Details Date Type Department Care Team ([facility] Contact Info) Description 08/30/2024 Orders Only [facility] MED & PEDS [address] [place], [place] [phone] David Orlando MD [address] [place], [place] [phone] Other specified hypothyroidism (Primary Dx) Social History Tobacco Use Types Packs/Day Years [...] Recorded Patient Health Questionnaire-2 Score 0 01/13/2023 Internet Access Answer Date Recorded Internet Access [...] 04/09/2025 1:45 PM EDT Office Visit [facility] MED [facility] PEDS [address] [place] [address] David Orlando MD [address] [place] [address] Scheduled Orders Name Type Priority Associated Diagnoses Orde r Schedule TSH W/Reflex to FT4 Lab Routine Other specified hypothyroidism Expected: 08/30/2024 (Approximate), Expires: 08/30/2025 documented as of this encounter Procedures Procedure Name Priority Date/Time Associated Diagnosis Comments HEPATITIS C VIRAL RNA, QUANTITATIVE, REAL-TIME PCR Routine 08/30/2024 9:41 AM EDT Other specified hypothyroidism T4, FREE Routine 08/30/2024 9:41 AM EDT Other specified hypothyroidism documented in this encounter Results * Hepatitis C Viral RNA, Quantitative, Real-Time PCR (08/30/2024 9:41 AM EDT) Hepatitis C Viral Load <15 NOT DETECTED NOT DETECTED IU/mL [facility] HCV Log PCR <1.18 NOT DETECTED NOT DETECTED Log IU/mL [facility] Comment:For additional infor dorothea, please refer tohttp://education.[employer]/faq/UMR26r3(This link is being provided for informational/educational purposes only.)THIS TEST WAS PERFORMED AT:[employer] [place] [id number] GALINDO MD 08/30/2024 9:41 AM EDT 08/31/2024 12:12 PM EDT us David Orlando MD LAB BLOOD ORDERABLES Final Result Performing Organization Address [facility] Co de Phone Number [facility] [address] [place] [phone] * (ABNORMAL) T4, Free (08/30/2024 9:41 AM EDT) Free T4 (Free Thyroxine) 0.69(L) 0.71 - 1.85 ng/dL [facility] 08/30/2024 9:41 AM EDT 08/30/2024 2:37 PM EDT us David Orlando MD LAB BLOOD ORDERABLES Final Result Performing Organization Address [facility] de Phone Number [facility] [address] [place] [phone] documented in this encounter Visit Diagnoses Diagnosis Other specified hypothyroidism- Primary documented in this encounter Additional Health Concerns Assessment Noted Time PHQ-9 Depression Total Score: 1 12/10/19 23 10:30 AM EST documented as of this encounter Care Teams Public Service Representative Relationship Specialty Start Date End Date David Orlando MD [address] [place] [address] PCP - General Internal Medicine 04/05/12 documented as of this encounter
--- OUTSIDE RECORDS SUMMARY | 2025-04-04 15:40 | XMS_ITS | Encounter Summary ---
Author Organization [employer] Address [address] [facility] 7t [place] [address] Care Team Providers Care Slope Hoist Operator Name Role Phone David Orlando MD Primary Care Provider [phone] Encounter Details Date Type Department Care Team ([facility] Contact Info) Description 05/07/2023 Orders Only [facility] MED & PEDS [address] [place], [place] [phone] David Orlando MD [address] [place] [address] Other specified glaucoma, unspecified laterality (Primary Dx) Social History Tobacco Use Types [...] suspected to have Coronavirus/COVID-19? No / Unsure 05/03/2023 9:31 AM EDT documented as of this encounter Plan of Treatment Upcoming Encounters Date Type Department Care Team (Late st Contact Info) Description 04/09/2025 1:45 PM EDT Office Visit [facility] MED & PEDS [address] [place] [address] David Orlando MD [address] [place] [address] documented as of this encounter Visit Diagnoses Diagnosis Other specified glaucoma, unspecified laterality- Primary documented in this encounter Additional Health Concerns Assessment Noted Time PHQ-9 Depression Total Score: 1 12/10/19 23 10:30 AM EST documented as of this encounter Care Teams Slope Hoist Operator Relationship Specialty Start Date End Date David Orlando MD [address] [place] [address] PCP - General Internal Medicine 04/05/12 documented as of this encounter
--- OUTSIDE RECORDS SUMMARY | 2025-04-04 15:40 | XMS_ITS | Encounter Summary ---
Author Organization [employer] Address [address] [facility] 7t [place] [address] Care Team Providers Care Air Conditioning Coil Assembler Name Role Phone David Orlando MD Primary Care Provider [phone] Encounter Details Date Type Department Care Team ([facility] Contact Info) Description 05/14/2023 Orders Only [facility] MED & PEDS [address] [place], [place] [phone] Grace Gage LPN Social History Tobacco Use Types Packs/Day Years [...] suspected to have Coronavirus/COVID-19? No / Unsure 05/13/2023 9:11 AM EDT documented as of this encounter Plan of Treatment Upcoming Encounters Date Type Department Care Team ([facility] Contact Info) Description 04/09/2025 1:45 PM EDT Office Visit [facility] MED & PEDS [address] [place], [place] [phone] David Orlando MD [address] [place] [address] documented as of this encounter Visit Diagnoses Not on filedocumented in this encounter Additional Health Concerns Assessment Noted Time PHQ-9 Depression Total Score: 1 12/10/19 23 10:30 AM EST documented as of this encounter Care Teams Air Conditioning Coil Assembler Relationship Specialty Start Date End Date David Orlando MD [address] [place] [address] PCP - General Internal Medicine 04/05/12 documented as of this encounter
--- OUTSIDE RECORDS SUMMARY | 2025-04-04 15:40 | XMS_ITS | Encounter Summary ---
Author Organization [employer] Address [address] [facility] 7t [place] [address] Care Team Providers Care Bilingual Elementary School Teacher Name Role Phone David Orlando MD Primary Care Provider [phone] Reason for Visit * Reason Comments Pre-visit Planning Pre visit planning L VM Encounter Details Date Type Department Care Team ([facility] Contact Info) Description 04/02/2025 Patient Outreach [facility] [address] [place] [address] David Orlando MD [address] [place] [phone] Pre-visit Planning (Pre visit planning LVM ) Social History Tobacco Use Types Packs/Day Years [...] is your housing situation today? I have casziyad marks 08/21/[address] you [...] AM EDT documented as of this encounter Progress Notes * Eren Haines - 04/02/2025 3:29 PM EDT CC Eren Gallardo placed outbound call to patient to complete pre-visit planning. No answer at this time.Patient name and were not confirmed. CC left voicemail requesting return call. Direct contact information provided. documented in this encounter Plan of Treatment Upcoming Encounters Date Type Department Care Team ([facility] st Contact Info) Description 04/09/2025 1:45 PM EDT Office Visit [facility] MED & PEDS [address] [place] [address] David Orlando MD [address] [place] [address] documented as of this encounter Visit Diagnoses Not on filedocumented in this encounter Additional Health Concerns Assessment Noted Time PHQ-9 Depression Total Score: 1 12/10/19 23 10:30 AM EST documented as of this encounter Care Teams Bilingual Elementary School Teacher Relationship Specialty Start Date End Date David Orlando MD [address] [place] [address] PCP - General Internal Medicine 04/05/12 documented as of this encounter
[2025-04-04 16:54] VITALS: BP 118/70; PULSE 84; RESP 16; TEMP 36.6; O2SAT 98
[2025-04-04 17:12] VITALS: BP 118/70; PULSE 84; RESP 16; TEMP 36.6; O2SAT 98
== END 2025-04-04 17:18 | disposition home or self-care (01) ==
PROVIDERS: Physician Assistant; Emergency Provider Emergency Medicine; PCP Internal Medicine
DX: R42 Dizziness and giddiness (principal); R51.9 Headache, unspecified; R94.31 Abnormal electrocardiogram [ECG] [EKG]; Z87.891 Personal history of nicotine dependence; Z79.899 Other long term (current) drug therapy; Z03.818 Encounter for observation for suspected exposure to other biological agents ruled out
CPT/HCPCS: 0241U; 36415; 70450; 80048; 80076; 83735; 84484; 85025; 93005; 99284

== ENCOUNTER → 2025-04-04 11:55 | Outpatient (BNV) | payer MEDICARE, MEDICAID, SELFPAY | PROVIDERS: Emergency Provider Emergency Medicine; PCP Internal Medicine; Visit Provider Radiology Diagnostic Radiology | DX: R51.9 Headache, unspecified (principal); R42 Dizziness and giddiness | CPT/HCPCS: 70450 ==

== ENCOUNTER → 2025-04-04 11:55 | Outpatient (BNV) | payer MEDICARE, MEDICAID, SELFPAY | PROVIDERS: Emergency Provider Emergency Medicine; PCP Internal Medicine; Visit Provider Internal Medicine | DX: I44.0 Atrioventricular block, first degree (principal) | CPT/HCPCS: 93010 ==

== ENCOUNTER 2025-07-02 09:33 | Outpatient (REF) | payer MEDICARE, SELFPAY ==
--- OUTSIDE RECORDS SUMMARY | 2025-07-02 10:04 | XMS_ITS | Encounter Summary ---
Author Organization [employer] Address [address] [facility] [address] [place] [address] Care Team Providers Care Field Merchandiser Name Role Phone David Orlando MD Primary Care Provider [phone] Encounter Details Date Type Department Care Team ([facility] st Contact Info) Description 06/28/2025 Telephone [facility] [address] [place] [address] Bartolo Jones [address] [place] [address] Social History Tobacco Use Types Packs/Day Years [...] AM EDT documented as of this encounter Miscellaneous Notes * Telephone Encounter - Markie Mccollum - 06/28/2025 10:11 AM EDT PT is calling back to rs the appt his voicemail stated he was booked incorrectly and would like a new appt date. Thank you documented in this encounter Plan of Treatment Not on file documented as of this encounter Visit Diagnoses Not on filedocumented in this encounter Additional Health Concerns Assessment Noted Time PHQ-9 Depression Total Score: 1 12/10/19 23 10:30 AM EST documented as of this encounter Care Teams Field Merchandiser Relationship Specialty Start Date End Date David Orlando MD [address] [place] [id number] PCP - General Internal Medicine 04/05/12 documented as of this encounter
--- OUTSIDE RECORDS SUMMARY | 2025-07-02 10:04 | XMS_ITS | Clinical Summary ---
Author Organization [facility] it Address [address] [place] [address] Care Team Providers Care Eligibility Specialist Name Role Phone David Orlando MD Primary Care Provider [phone] Social History Tobacco Use Types Packs/Day Years Used Date Smoking Tobacco: Never Assessed Sex and Gender Information Value Date Recorded Sex Assigned at Not on file Legal Sex Male 11:25 PM EST Gender Identity Not on file Sexual Orientation Not on file Plan of Treatment Health Maintenance Due Date Last Done Comments COVID-19 Vaccine (#1) 1954 Diabetes: Annual Foot Exam 1959 Diabetes: Annual Retina Eye Exam 1959 Zoster Vaccines (1 of 2) 07/12/2017 05/17/2017 Abdominal Aortic Aneurysm (AAA) Screen 11/08/2022 Colorectal Cancer Screening: Colonoscopy 11/08/2022 Falls Risk Assessment 11/08/2022 Social Influencers of Health Screening 11/08/2022 Depression Screening 11/29/2024 RSV Immunization Adult Patients (1 - 1-dose 75+ series) 2024 Diabetes: Annual Urine Albumin-Creatinine Ratio (uACR) 06/19/2025 Influenza Vaccine (#1) 2025 , 10/13/2018, 11/04/2017, Additional history exists Diabetes: Blood Sugar Control Test (HGBA1C) 12/19/2025 06/18/2025 Diabetes: Annual GFR (Glomerular Filtration Rate) 04/04/2026 04/04/2025 Hypertension/CHF/CAD Annual BMP Blood Test 04/04/2026 04/04/2025 DTaP,Tdap,and Td Vaccines (2 - Td or Tdap) 05/17/2027 05/17/2017 Cholesterol Screening (Lipid Panel) 08/30/2029 08/30/2024 Pneumococcal Vaccine: 50+ Years Completed 08/28/2024, 01/08/2017 Hepatitis C Screening Completed 08/30/2024 HIB Vaccines Aged Out No longer eligi [...] to complete this topic RSV Immunization Patients Under 20 months Aged Out No longer eligible based on patient's age to complete this topic Varicella Vaccines Aged Out No longer eligible based on patient's age to complete this topic Care Teams Eligibility Specialist Relationship Specialty Start Date End Date David Orlando MD [address] [place] [address] PCP - General Internal Medicine 11/20/21
[2025-07-02 13:57] LABS: MANUAL DIFF FLAG NO
[2025-07-02 14:10] LABS: Hematocrit 40.4 % (42.0-52.0); Hemoglobin 13.8 g/dl (14.0-18.0); Imm Gran Abs Auto 0.02 X10*3/uL (0.00-0.03); Imm Gran Pct Auto 0.5 % (0.0-0.4); Lymphocytes Absolute Auto 1.3 X10*3/uL (1.2-4.9); Mean Corpuscular HGB Conc 34.2 g/dl (31.0-36.0); Mean Corpuscular Hemoglobin 29.9 pg (27.0-33.0); Mean Corpuscular Volume 87.4 fL (80.0-98.0); NRBC Abs Auto 0.000 X10*3/uL (0.0-0.012); NRBC Pct Auto 0.0 /100WBC (0.0-0.2); Platelet Count 206 X10*3/uL (160-400); Red Blood Count 4.62 X10*6/uL (4.60-5.80); White Blood Count 4.4 X10*3/uL (4.8-10.8)
[2025-07-02 14:39] LABS: Alanine Aminotransferase 21 U/L (0-40); Albumin Level 4.2 g/dL (3.5-5.0); Alkaline Phosphatase 110 U/L (39-117); Anion Gap 9 (12-20); Aspartate Amino Transferase 21 U/L (5-37); Blood Urea Nitrogen 11 mg/dL (9-16); Calcium 9.0 mg/dL (8.4-10.2); Carbon Dioxide 26 mmol/L (22-29); Chloride 111 mmol/L (96-108); Cholesterol 158 mg/dL (<200); Estimated Glomerular Filt Rate > 60; HDL Cholesterol 60 mg/dL (>40); Potassium 3.9 mmol/L (3.3-5.1); Sodium 142 mmol/L (135-145); Total Protein 6.9 g/dL (6.5-8.0); Triglycerides 109 mg/dL (<150)
[2025-07-02 17:33] LABS: Free T4 (Free Thyroxine) 1.06 ng/dL (0.71-1.85)
== END 2025-07-02 09:34 | disposition home or self-care (01) ==
LOC: HO.CHCLDS 09:33
PROVIDERS: Visit Provider Internal Medicine
DX: E11.9 Type 2 diabetes mellitus without complications (principal)
CPT/HCPCS: 36415; 80053; 80061; 84439; 84443; 85025